=== PATIENT | female | born 1975 | race American Indian/Alaskan Native ===

== ENCOUNTER 2017-01-05 18:02 | Emergency (ER) | payer BC ==
[2017-01-05 18:32] VITALS: RESP 18; TEMP 98.2; O2SAT 100
[2017-01-05 19:01] LABS: HEMATOCRIT 37.8 % (36.0-48.0); MEAN CELL VOLUME 73.7 fL (80.0-105.0); MEAN CORPUSCULAR HEMOGLOBIN 23.4 pg (25.0-35.0); MEAN CORPUSCULAR HGB CONC 31.7 g/dl (31.0-37.0); MEAN PLATELET VOLUME 8.9 fl (7.0-11.0); RED CELL DISTRIBUTION WIDTH 17.3 % (11.5-14.5); WHITE BLOOD COUNT 12.5 10^3/ul (4.5-11.0)
[2017-01-05 19:11] LABS: ALB/GLOB RATIO 0.8 (1.1-1.8); ALKALINE PHOSPHATASE 135 U/L (38-133); ALT/SGPT 22 U/L (7-56); AST/SGOT 78 U/L (15-39); BILIRUBIN,TOTAL 0.8 mg/dL (0.2-1.3); BLOOD UREA NITROGEN 8 mg/dL (7-21); CALCIUM 9.5 mg/dL (8.4-10.5); CARBON DIOXIDE 24 mmol/L (21-33); CHLORIDE 101 mmol/L (98-107); GFR AFRICAN-AMERICAN > 60; GLUCOSE,RANDOM 108 mg/dL (70-110); POTASSIUM 5.1 mmol/L (3.6-5.0); SODIUM 139 mmol/L (132-148); TOTAL PROTEIN 9.5 g/dL (5.8-8.3)
--- NOTE | 2017-01-05 19:37 | ED PDOC ---
Arrival/HPI - General Chief Complaint: High Blood Pressure Time Seen by Provider: 01/05/17 18:25 Historian: Patient - History of Present Illness Narrative History of Present Illness (Text): 01/05/17 19:32 Patient with PMH of HIV and idiopathic thrombocytosis, reports one day history of blurry vision this morning which lasted for 10 minutes and resolved on its own, states that she had another episode this afternoon which lasted for 5 minutes and resolved on its own. Patient states that she has a history of hypertension and the last time she saw her PMD which was several months ago, her blood pressure in the office was elevated, however was not put on any antihypertensive medication. Since then she has not had any follow-up with a primary care physician. Otherwise: (-) chest pain, (-) diaphoresis, (-) dyspnea , (-) dizziness, (-) loss in her vision, (-) dizziness, (-) syncope, (-) nausea , (-) vomiting, (-) calf swelling/pain, (-) other neuro deficits. PMD none Past Medical History - Provider Review Nursing Documentation Reviewed: Yes - Infectious Disease Hx of Infectious Diseases: None - Cardiac Hx Hypertension: Yes - Pulmonary Hx Respiratory Disorders: No - Neurological Hx Neurological Disorder: No - HEENT Hx HEENT Disorder: No - Renal Hx Renal Disorder: No - Endocrine/Metabolic Hx Endocrine Disorders: No - Hematological/Oncological Hx Blood Disorders: Yes Other/Comment: HIV - Integumentary Hx Dermatological Disorder: No - Musculoskeletal/Rheumatological Hx Musculoskeletal Disorders: No - Gastrointestinal Hx Gastrointestinal Disorders: No - Genitourinary/Gynecological Hx Genitourinary Disorders: No - Psychiatric Hx Psychophysiologic Disorder: No Hx Substance Use: No - Surgical History Hx Section: Yes - Anesthesia Hx Anesthesia: No Hx Anesthesia Reactions: No Hx Malignant Hyperthermia: No Family/Social History - Physician Review Nursing Documentation Reviewed: Yes Family/Social History: No Known Family HX Smoking Status: Never Smoked Hx Alcohol Use: No Hx Substance Use: No Allergies/Home Meds Allergies/Adverse Reactions: Allergies No Known Allergies Allergy (Verified 01/05/17 18:31) Review of Systems - Review of Systems Constitutional: Normal. absent: Fatigue, Weight Change, Fevers Eyes: Normal. absent: Photophobia, Eye Pain Respiratory: Normal. absent: SOB, Cough Cardiovascular: Normal. absent: Chest Pain, Palpitations Gastrointestinal: Normal. absent: Abdominal Pain, Stool Changes, Vomiting Skin: Normal. absent: Rash, Skin Lesions Neurological: Normal, Headache (daily headaches in the morning x 1 month, none at this time). absent: Dizziness, Focal Weakness Physical Exam - Physical Exam Narrative Physical Exam (Text): 01/05/17 19:41 GENERAL APPEARANCE: Patient is awake, alert, oriented x 3, in no acute distress. SKIN: Warm, dry; (-) cyanosis. EYES: Visual acuity: R eye: 20/20 L eye: 20/25 (-) conjunctival pallor, (+) PERRLA, (+) EOMI. ENMT: Mucous membranes moist. NECK: (-) tenderness, (-) stiffness, (-) lymphadenopathy, (-) JVD. CHEST AND RESPIRATORY: (-) rash, (-) chest wall tenderness. Lungs: (-) rales , (-) rhonchi, (-) wheezes, (-) rub; breath sounds equal bilaterally. HEART AND CARDIOVASCULAR: (-) irregularity; (-) murmur, (-) gallop, (-) rub. ABDOMEN AND GI: Soft; (-) distention, (-) tenderness, (-) palpable pulsatile mass. EXTREMITIES: (-) deformity; (-) edema, (-) calf tenderness. (+) distal pulses. NEURO AND PSYCH: Mental status as above. Cranial nerves grossly intact; strength symmetric. Vital Signs Temp Pulse Resp BP Pulse Ox 01/05/17 20:11 99 H 154/94 H 01/05/17 19:27 102 H 161/93 H 01/05/17 18:31 98.2 F 103 H 18 185/107 H 100 01/05/17 18:23 98.5 F 92 H 17 185/107 H 97 Medical Decision Making ED Course and Treatment: 01/05/17 19:42 41 yo F presents with 2 episodes of blurry vision today, is noted to have elevated blood pressure, which patient has a history of, but currently is not taking any medications. Plan: -- Labs -- EKG -- CXR -- Norvasc -- Reassess and disposition 01/05/17 21:51 CXR : NAD, as read by VALENTINA EKG: Sinus tach at 102 bpm, (-) acute ST changes, as read by VALENTINA. Labs reviewed and are within normal limits, except her platelets are 1061. Patient informed, states that she is aware of her elevated platelets, states that 2 years ago she had a full and extensive work up for it, including a bone marrow biopsy and all the test yielded negative results. She states that she was even seeing a group teacher, who only recommended that she takes an ASA daily , which she is not complaints with. On reevaluation, patient states that she feels well, denies any headache, dizziness, visual disturbances - including vision loss or blurry vision, chest pain, difficulty breathing. On exam, patient remains awake, alert, oriented 3 in no acute distress. Repeat neuro exam shows no focal findings. All diagnostic results discussed with the patient in great detail. VS P 99 BP 154/94. Based on history, exam and diagnostic results plan will be for outpatient follow -up. Prescription provided. Patient advised that she must follow up with a doctor regarding her elevated BP and with an eye doctor for her blurry vision. Patient states she fully agrees with and understands discharge instructions. States that she agrees with the plan and disposition. Verbalized and repeated discharge instructions and plan. I have given the patient opportunity to ask any additional questions. Follow up with referral physician - PMD & bear keeper in 1-2 days without fail. Advised to take medication as prescribed. Return to the emergency room at any time for any new or worsening symptoms. - Lab Interpretations Lab Results: 01/05/17 18:38 01/05/17 18:38 Lab Results 01/05/17 18:38: WBC 12.5 H, RBC 5.13, Hgb 12.0, Hct 37.8, MCV 73.7 L, MCH 23.4 L , MCHC 31.7, RDW 17.3 H, Plt Count 1061 H*, MPV 8.9, Sodium 139, Potassium 5.1 H , Chloride 101, Carbon Dioxide 24, Anion Gap 19, BUN 8, Creatinine 0.9, Est GFR ( Amer) > 60, Est GFR (Non-Af Amer) > 60, Random Glucose 108, Calcium 9.5 , Total Bilirubin 0.8, AST 78 H, ALT 22, Alkaline Phosphatase 135 H, Total Protein 9.5 H, Albumin 4.3, Globulin 5.1, Albumin/Globulin Ratio 0.8 L - RAD Interpretation Radiology Orders: 03/21/17 19:43 CHEST TWO VIEWS (PA/LAT) [RAD] Stat - Medication Orders Current Medication Orders: Discontinued Medications Amlodipine Besylate (Norvasc) 5 mg PO STAT STA Stop: 01/05/17 19:14 Last Admin: 01/05/17 19:27 Dose: 5 MG MAR Pulse and Blood Pressure Document 01/05/17 19:27 SE (Rec: 01/05/17 19:27 SE [id number]) Pulse Pulse Rate (60-90) 102 Blood Pressure Blood Pressure (100/60-150/90) 161/93 Sodium Polystyrene Sulfonate (Kayexalate Oral Susp) 15 gm PO STAT STA Stop: 01/05/17 20:40 Last Admin: 01/05/17 21:13 Dose: 15 GM - PA / CAFETERIA MONITOR / Resident Statement / has reviewed & agrees with the documentation as recorded. Disposition/Present on Arrival - Present on Arrival Any Indicators Present on Arrival: No History of DVT/PE: No History of Uncontrolled Diabetes: No Urinary Catheter: No History of Decub. Ulcer: No History Surgical Site Infection Following: None - Disposition Have Diagnosis and Disposition been Completed?: Yes Diagnosis: Hypertension, Blurry vision, bilateral Disposition: HOME/ ROUTINE Disposition Time: 21:54 Patient Plan: Discharge Patient Problems: Current Active Problems Problem Status Diagnosed Blurry vision, bilateral Acute Hypertension Acute Condition: STABLE Discharge Instructions (ExitCare): Hypertension (ED), Blurred Vision (ED) Print Language: GERMAN Additional Instructions: Thank you for letting us take care of you today. You were treated for hypertension, blurry vision. The emergency medical care you received today was directed at your acute symptoms. If you were prescribed any medication, please fill it and take as directed. It may take several days for your symptoms to resolve. Return to the Emergency Department if your symptoms worsen, do not improve, or if you have any other problems. Please call one of the physicians/clinics you have been referred to that are listed on the Patient Visit Information form that is included in your discharge packet. Bring any paperwork you were given at discharge with you along with any medications you are taking to your follow up visit. Our treatment cannot replace ongoing medical care by a primary care provider (PCP) outside of the emergency department. Thank you for allowing the [facility] team to be part of your care today. Prescriptions: amLODIPine [Norvasc] 5 mg PO DAILY #30 tab Referrals: Edmundo Lopez DO [Staff Provider] - Follow up with primary Dudley Rm MD [Staff Provider] - Follow up with primary Forms: WORK NOTE
[2017-01-05 20:11] VITALS: PULSE 99
[2017-01-05] MEDS ORDERED: Sod Polystyrene Sulf 15 gm/60 ml Oral Susp PO STA (20:39)
[2017-01-05 22:14] VITALS: BP 153/98
--- NOTE | 2017-01-06 07:20 | RAD ---
HISTORY: HTN COMPARISON: No prior. TECHNIQUE: Chest PA and lateral FINDINGS: LUNGS: Poor inspiration with low lung volumes, mild crowded bronchovascular markings and mild bibasilar atelectasis PLEURA: No significant pleural effusion identified. No pneumothorax apparent. CARDIOVASCULAR: Normal. OSSEOUS STRUCTURES: No significant abnormalities. VISUALIZED UPPER ABDOMEN: Normal. OTHER FINDINGS: None. IMPRESSION: Poor inspiration with low lung volumes, mild crowded bronchovascular markings and mild bibasilar atelectasis
--- NOTE | 2017-01-06 20:10 | CARD ---
APPROVED REPORT EKG Measurement Heart [id number] <Conclusion> Poor data quality, interpretation may be adversely affected Sinus tachycardia Nonspecific T wave abnormality Abnormal ECG
== END 2017-01-05 22:15 | disposition home or self-care (01) ==
LOC: MERGE 18:02 → ED 18:02
DX: H53.8 Other visual disturbances (principal); I10 Essential (primary) hypertension

== ENCOUNTER 2017-01-11 17:22 | Emergency (ER) | payer BC ==
[2017-01-11 18:06] VITALS: BMI 38.9
[2017-01-11 18:07] VITALS: BP 147/82; PULSE 94; RESP 16; TEMP 98.8; O2SAT 98
--- NOTE | 2017-01-11 18:17 | ED PDOC ---
Arrival/HPI - General Historian: Patient - History of Present Illness Time/Duration: Prior to Arrival, 4-6 hours Symptom Onset: Sudden Symptom Course: Intermittent Severity Level: Mild <Juan Davis - Last Filed: 01/11/17 18:10> <Bakari Lee - Last Filed: 01/11/17 18:53> - General Chief Complaint: Eye Problem Time Seen by Provider: 01/11/17 17:28 - History of Present Illness Narrative History of Present Illness (Text): 01/11/17 18:10 This is a 41 year old female with a PMH notable for HIV and idiopathic thrombocytosis presenting to the ED with complaint of double vision x 2 episodes. The patient reports two 5 minute episodes of a cross-eyed sensation resulting in horizontal double vision. The patient has been recently seen in the ED for this same complaint. The patient has been seen by an tour agent within the last few days and reported that the patient had elevated intra-occular pressure. The patient has recently been started on 3 anti-hypertensive medications for blood pressure control. The patient reports compliance with all of her medications. The patient denies fever, chills, headache, chest pain, SOB, abdominal pain, changes in bowel/bladder, and extremity paresthesias. (Juan Davis) Past Medical History - Provider Review Nursing Documentation Reviewed: Yes - Travel History Have you recently traveled outside [place] w/in the past 3 mons?: No - Infectious Disease Hx of Infectious Diseases: None - Tetanus Immunization Tetanus Immunization: Unknown - Reproductive Menopause: No - Cardiac Hx Hypertension: Yes - Pulmonary Hx Respiratory Disorders: No - Neurological Hx Neurological Disorder: No - HEENT Hx HEENT Disorder: No - Renal Hx Renal Disorder: No - Endocrine/Metabolic Hx Endocrine Disorders: No - Hematological/Oncological Hx Blood Disorders: Yes Other/Comment: HIV - Integumentary Hx Dermatological Disorder: No - Musculoskeletal/Rheumatological Hx Musculoskeletal Disorders: No - Gastrointestinal Hx Gastrointestinal Disorders: No - Genitourinary/Gynecological Hx Genitourinary Disorders: No - Psychiatric Hx Psychophysiologic Disorder: No Hx Substance Use: No - Surgical History Hx Section: Yes - Anesthesia Hx Anesthesia: No Hx Anesthesia Reactions: No Hx Malignant Hyperthermia: No <Juan Davis - Last Filed: 01/11/17 18:10> <Bakari Lee - Last Filed: 01/11/17 18:53> - Patient History Narrative Patient History: This is a 41 year old female with a PMH notable for HIV and idiopathic thrombocytosis (Juan Davis) Family/Social History - Physician Review Nursing Documentation Reviewed: Yes Family/Social History: No Known Family HX Smoking Status: Never Smoked Hx Alcohol Use: No Hx Substance Use: No <Juan Davis - Last Filed: 01/11/17 18:10> Allergies/Home Meds <Juan Davis - Last Filed: 01/11/17 18:10> <Bakari Lee - Last Filed: 01/11/17 18:53> Allergies/Adverse Reactions: Allergies No Known Allergies Allergy (Verified 01/05/17 18:31) Review of Systems - Physician Review All systems were reviewed & negative as marked: Yes - Review of Systems Constitutional: absent: Fatigue, Weight Change Eyes: Vision Changes, Other (horizontal double vision). absent: Eye Pain ENT: absent: Hearing Changes, Tinnitus Respiratory: absent: SOB, Cough Cardiovascular: absent: Chest Pain, Palpitations Gastrointestinal: absent: Abdominal Pain, Nausea, Vomiting Genitourinary Female: absent: Dysuria, Frequency Musculoskeletal: absent: Arthralgias Skin: absent: Rash Neurological: absent: Headache, Dizziness Endocrine: absent: Diaphoresis Hemo/Lymphatic: absent: Adenopathy Psychiatric: absent: Anxiety <Juan Davis - Last Filed: 01/11/17 18:10> Physical Exam Vital Signs Reviewed: Yes Temperature: Afebrile Blood Pressure: Normal Pulse: Regular Respiratory Rate: Normal Appearance: Positive for: Well-Appearing, Non-Toxic, Comfortable Pain Distress: None Mental Status: Positive for: Alert and Oriented X 3 - Systems Exam Head: Present: Atraumatic, Normocephalic Pupils: Present: PERRL, Other (good accomidation, good visual acuity, intact peripheral vision ). No: Pinpoint Extroacular Muscles: Present: EOMI. No: Entrapment Conjunctiva: Present: Normal. No: Injected Mouth: Present: Moist Mucous Membranes Neck: Present: Normal Range of Motion. No: JVD, Lymphadenopathy Respiratory/Chest: Present: Clear to Auscultation, Good Air Exchange. No: Respiratory Distress, Accessory Muscle Use, Wheezes Cardiovascular: Present: Regular Rate and Rhythm, Normal S1, S2, Peripheal Pulses Present. No: Murmurs Abdomen: Present: Normal Bowel Sounds. No: Tenderness, Distention, Peritoneal Signs Upper Extremity: Present: Normal Inspection. No: Cyanosis, Edema Lower Extremity: Present: Normal Inspection. No: Edema Neurological: Present: GCS=15, CN II-XII Intact, Speech Normal Skin: Present: Warm, Dry, Normal Color. No: Rashes Psychiatric: Present: Alert, Oriented x 3 <Juan Davis - Last Filed: 01/11/17 18:10> Temperature: Afebrile Blood Pressure: Normal Pulse: Regular Respiratory Rate: Normal Appearance: Positive for: Well-Appearing, Non-Toxic, Comfortable Pain Distress: None Mental Status: Positive for: Alert and Oriented X 3 - Systems Exam Head: Present: Atraumatic, Normocephalic Pupils: Present: PERRL Extroacular Muscles: Present: EOMI Conjunctiva: Present: Normal Mouth: Present: Moist Mucous Membranes Neck: Present: Normal Range of Motion Respiratory/Chest: Present: Clear to Auscultation, Good Air Exchange. No: Respiratory Distress, Accessory Muscle Use Cardiovascular: Present: Regular Rate and Rhythm, Normal S1, S2. No: Murmurs Abdomen: Present: Normal Bowel Sounds. No: Tenderness, Distention, Peritoneal Signs Back: Present: Normal Inspection Upper Extremity: Present: Normal Inspection. No: Cyanosis, Edema Lower Extremity: Present: Normal Inspection. No: Edema Neurological: Present: GCS=15, CN II-XII Intact, Speech Normal, Motor Func Grossly Intact, Normal Sensory Function, Normal Cerebellar Funct, Gait Normal, Memory Normal, Normal 2Pt Descrimination Skin: Present: Warm, Dry, Normal Color. No: Rashes Psychiatric: Present: Alert, Oriented x 3, Normal Insight, Normal Concentration <Bakari Lee - Last Filed: 01/11/17 18:53> Vital Signs Temp Pulse Resp BP Pulse Ox 01/11/17 18:06 98.8 F 94 H 16 147/82 98 Medical Decision Making <Juan Davis - Last Filed: 01/11/17 18:10> <Bakari Lee - Last Filed: 01/11/17 18:53> ED Course and Treatment: 01/11/17 18:23 Impression: This is a 41 year old female with a PMH notable for HIV and idiopathic thrombocytosis presenting to the ED with complaint of double vision x 2 episodes. The patient appears clinically stable. Differential: Hypertension associated visual changes Thyroid Dysregulation Anxiety Plan: Outpatient follow up with PMD Prior Visits: No Inpatient Visits Progress Note: Patient seen and examined at the bedside. No acute distress. No clinical symptoms at this time. Patient is completely asymptomatic. No symptoms elicited on examination. Patient with starkly normal neurological examination. Patient medically stable for discharge. Patient agreeable with discharge plan and follow-up with PMD as soon as possible. (Juan Davis) 01/11/17 18:48 41 yo female who reports two episodes of double vision as documented by resident. She states that her Opthamologist told her that her ocular pressure was a little elevated and she has a follow up appointment in a month. Her primary doctor she has follow up with on Wednesday. The patient does not have any symptoms at this time. She states that she's had these symptoms several times because of her BP and they also told her she needs to be evaluated for thyroid disease. Her neuro exam is normal. She is ambulating with a steady gated. She will make sure to follow up with her appointments and continues to take her BP medications as prescribed. (Bakari Lee) Disposition/Present on Arrival - Present on Arrival Any Indicators Present on Arrival: No History of DVT/PE: No History of Uncontrolled Diabetes: No Urinary Catheter: No History Surgical Site Infection Following: None - Disposition Have Diagnosis and Disposition been Completed?: Yes Disposition Time: 18:15 Patient Plan: Discharge <Juan Davis - Last Filed: 01/11/17 18:10> - Present on Arrival Any Indicators Present on Arrival: No - Disposition Have Diagnosis and Disposition been Completed?: Yes Disposition Time: 18:06 Patient Plan: Discharge <Bakari Lee - Last Filed: 01/11/17 18:53> - Disposition Diagnosis: Diplopia Disposition: HOME/ ROUTINE Patient Problems: Current Active Problems Problem Status Diagnosed Blurry vision Acute Condition: GOOD Discharge Instructions (ExitCare): Blurred Vision (ED) Print Language: SWEDISH Additional Instructions: 1.) Follow up with PMD within 48 hours 2.) Take all medications in accordance with prescriptions 3.) If symptoms return, please return to the ED for evaluation
== END 2017-01-11 18:45 | disposition home or self-care (01) ==
LOC: ED 17:22
DX: H53.2 Diplopia (principal)

== ENCOUNTER 2017-02-11 19:46 | Observation (INO) | payer BC ==
--- NOTE | 2017-02-11 21:02 | ED PDOC ---
Arrival/HPI - General Chief Complaint: Dizziness/Lightheaded Time Seen by Provider: 02/11/17 20:23 - History of Present Illness Narrative History of Present Illness (Text): 41F c/o intermittent vertigo lasting up to 2 hours and occurring daily for the last week. assoc w "head pressure," numbness in the left hand, and gait difficulty during episodes. no sx currently. she was recently admitted to [facility] where she had an MRI that showed 2 areas of restricted diffusion in the cerebellum that they thought were likely small vessel infarcts. she also was found to have high platelet count and was started on hydroxyurea she says for this. she had some episodes of double vision last month but no recent visual changes. no speaking or swallowing difficulty. hx of HIV on meds. Past Medical History - Infectious Disease Hx of Infectious Diseases: None - Tetanus Immunization Tetanus Immunization: Unknown - Cardiac Hx Hypertension: Yes - Pulmonary Hx Respiratory Disorders: No - Neurological Hx Neurological Disorder: No - HEENT Hx HEENT Disorder: No - Renal Hx Renal Disorder: No - Endocrine/Metabolic Hx Endocrine Disorders: No - Hematological/Oncological Hx Blood Disorders: Yes Other/Comment: HIV - Integumentary Hx Dermatological Disorder: No - Musculoskeletal/Rheumatological Hx Musculoskeletal Disorders: No - Gastrointestinal Hx Gastrointestinal Disorders: No - Genitourinary/Gynecological Hx Genitourinary Disorders: No - Psychiatric Hx Psychophysiologic Disorder: No Hx Substance Use: No - Surgical History Hx Section: Yes - Anesthesia Hx Anesthesia: No Hx Anesthesia Reactions: No Hx Malignant Hyperthermia: No Family/Social History Family/Social History: Other (nc) Smoking Status: Never Smoked Hx Alcohol Use: No Hx Substance Use: No Allergies/Home Meds Allergies/Adverse Reactions: Allergies No Known Allergies Allergy (Verified 01/05/17 18:31) Home Medications: Home Meds Medication Instructions Recorded Confirmed Alprazolam 0.5 mg PO BID PRN 02/12/17 02/12/17 Aspirin EC 325 mg PO DAILY 02/12/17 02/12/17 Hydrochlorothiazide 25 mg PO DAILY 02/12/17 02/12/17 Hydroxyurea 500 mg PO DAILY 02/12/17 02/12/17 Tivicay 50 mg PO DAILY 02/12/17 02/12/17 Truvada 200 MG-300 MG 200 - 300 mg PO DAILY 02/12/17 02/12/17 Valsartan 160 mg PO DAILY 02/12/17 02/12/17 amLODIPine [Norvasc] 10 mg PO DAILY 02/12/17 02/12/17 Review of Systems - Physician Review All systems were reviewed & negative as marked: Yes - Review of Systems Constitutional: absent: Fevers Eyes: absent: Photophobia ENT: absent: Hearing Changes Respiratory: absent: SOB, Cough Cardiovascular: Palpitations Gastrointestinal: absent: Abdominal Pain, Nausea, Vomiting Genitourinary Female: absent: Dysuria Neurological: Headache, Dizziness, Gait Changes. absent: Focal Weakness, Speech Changes Physical Exam Vital Signs Reviewed: Yes Vital Signs Temp Pulse Resp BP Pulse Ox 02/12/17 01:32 88 18 136/84 99 02/12/17 01:25 98.7 F 83 20 128/64 02/11/17 23:47 98.8 F 82 16 100 02/11/17 21:47 76 18 99 02/11/17 19:54 99.5 F 87 18 132/88 97 Appearance: Positive for: Well-Appearing, Non-Toxic, Comfortable Pain Distress: None Mental Status: Positive for: Alert and Oriented X 3 - Systems Exam Head: Present: Atraumatic Pupils: Present: PERRL Extroacular Muscles: Present: EOMI Mouth: Present: Moist Mucous Membranes Neck: Present: Normal Range of Motion Respiratory/Chest: Present: Clear to Auscultation Cardiovascular: Present: Regular Rate and Rhythm. No: Murmurs Abdomen: No: Tenderness, Distention Upper Extremity: Present: NORMAL PULSES Neurological: Present: GCS=15, CN II-XII Intact, Speech Normal, Motor Func Grossly Intact, Normal Sensory Function, Normal Cerebellar Funct, Gait Normal Skin: Present: Warm, Dry Psychiatric: Present: Alert, Oriented x 3 Medical Decision Making ED Course and Treatment: 02/11/17 22:26 EKG interpreted by me: NSR@ 90 bpm. Short [place]. nonspecific t wave changes. 02/12/17 00:12 EXAM: CT Head Without Intravenous Contrast CLINICAL HISTORY: FINDINGS: Brain: Unremarkable. No hemorrhage. No significant white matter disease. No edema. Ventricles: Unremarkable. No ventriculomegaly. Bones/joints: Unremarkable. No acute fracture. Soft tissues: Unremarkable. Sinuses: Unremarkable as visualized. No acute sinusitis. Mastoid air cells: Unremarkable as visualized. No mastoid effusion. IMPRESSION: No evidence of acute intracranial hemorrhage. No midline shift or hydrocephalus.If symptoms persist, correlation with MRI is advised. - Lab Interpretations Lab Results: 02/11/17 21:15 02/11/17 21:15 Lab Results 02/11/17 21:15: Troponin I < 0.01 02/11/17 21:15: TSH 3rd Generation 1.82 02/11/17 21:15: PT 11.4, INR 1.06, APTT 31.3 H 02/11/17 21:15: WBC 10.8, RBC 4.57, Hgb 10.9 L, Hct 33.4 L, MCV 73.1 L, MCH 23.9 L, MCHC 32.6, RDW 17.1 H, Plt Count 1234 H*, MPV 8.4, Gran % 61.1, Lymph % (Auto) 29.6, Perkins % (Auto) 7.6 H, Eos % (Auto) 1.2 L, Baso % (Auto) 0.5, Gran # 6.63 H, Lymph # 3.2, Perkins # 0.8 H, Eos # 0.1, Baso # 0.05 02/11/17 21:15: Sodium 137, Potassium 3.2 L, Chloride 98, Carbon Dioxide 27, Anion Gap 15, BUN 11, Creatinine 1.0, Est GFR ( Amer) > 60, Est GFR (Non- Af Amer) > 60, Random Glucose 112 H, Calcium 9.7, Total Bilirubin 0.5, AST 85 H , ALT 43, Alkaline Phosphatase 124, Total Protein 8.8 H, Albumin 4.4, Globulin 4.4, Albumin/Globulin Ratio 1.0 L I have reviewed the lab results: Yes - RAD Interpretation Radiology Orders: 02/11/17 20:47 CHEST PORTABLE [RAD] Stat 02/11/17 20:48 HEAD W/O CONTRAST [CT] Stat [employer] Printing: Radiologist - EKG Interpretation Interpreted by ED Physician: Yes Type: 12 lead EKG - Medication Orders Current Medication Orders: Discontinued Medications Amlodipine Besylate (Norvasc) 10 mg PO DAILY [facility] Last Admin: 02/12/17 09:12 Dose: 10 mg Aspirin (Aspirin Chewable) 324 mg PO STAT STA Stop: 02/12/17 00:18 Last Admin: 02/12/17 01:57 Dose: 324 mg Aspirin (Ecotrin) 325 mg PO DAILY [facility] Last Admin: 02/12/17 09:12 Dose: 325 mg Emtricitabine/Tenofovir (Truvada 200 Mg-300 Mg) 1 tab PO DAILY [facility] Last Admin: 02/12/17 09:12 Dose: 1 tab Enoxaparin Sodium (Lovenox) 70 mg SC Q24H MALLIKA PRN Reason: Protocol Enoxaparin Sodium (Lovenox) 40 mg SC DAILY MALLIKA PRN Reason: Protocol Last Admin: 02/12/17 09:14 Dose: Famotidine (Pepcid) 20 mg PO BID [facility] Home Med (Home Med) 1 unit PO DAILY [facility] Last Admin: 02/12/17 09:52 Dose: 1 unit Home Med (*Refrigerator Open) Confirm Administered Dose 1 unit XX .STK-MED ONE Stop: 02/12/17 09:27 Hydrochlorothiazide (Hydrodiuril) 25 mg PO DAILY [facility] Last Admin: 02/12/17 09:12 Dose: 25 mg Hydroxyurea (Hydrea) 500 mg PO Q12H [facility] Last Admin: 02/12/17 09:30 Dose: 500 mg Sodium Chloride (Sodium Chloride 0.9%) 1,000 mls @ 100 mls/hr IV .Q10H [facility] Last Admin: 02/12/17 14:36 Dose: 100 mls/hr Losartan Potassium (Cozaar) 100 mg PO DAILY [facility] Last Admin: 02/12/17 09:12 Dose: 100 mg Meclizine HCl (Antivert) 12.5 mg PO STAT STA Stop: 02/12/17 11:05 Last Admin: 02/12/17 11:32 Dose: 12.5 mg Pantoprazole Sodium (Protonix Ec Tab) 40 mg PO ACB [facility] Last Admin: 02/12/17 07:27 Dose: 40 mg Potassium Chloride (K-Dur 20 Meq Er Tab) 40 meq PO STAT STA Stop: 02/12/17 01:22 Last Admin: 02/12/17 01:57 Dose: 40 meq Potassium Chloride (K-Dur 20 Meq Er Tab) 40 meq PO STAT STA Stop: 02/12/17 09:46 Last Admin: 02/12/17 14:36 Dose: 40 meq NIHSS Scale ([place]) Time Performed: 20:30 - How Severe is the Stoke Baseline Level of Consciousness: 0=Alert LOC to Questions: 0=Both comments correct LOC to commands: 0=Obeys both correctly Best Gaze: 0=Normal Visual: 0=No visual loss Facial: 0=Normal Motor Arm - Left: 0=No drift Motor Arm - Right: 0=No drift Motor Leg - Left: 0=No drift Motor Leg - Right: 0=No drift Limb Ataxia: 0=Absent Sensory: 0=Normal Best Language: 0=No aphasia Dysarthia: 0=Normal articulation Extinction & Inattention (Neglect): 0=Normal, no object Score: 0 Risk Level: No Stroke Risk Disposition/Present on Arrival - Present on Arrival Any Indicators Present on Arrival: No History of DVT/PE: No History of Uncontrolled Diabetes: No Urinary Catheter: No History of Decub. Ulcer: No History Surgical Site Infection Following: None - Disposition Have Diagnosis and Disposition been Completed?: Yes Diagnosis: Vertigo Disposition: HOSPITALIZED Disposition Time: 00:34 Condition: STABLE
[2017-02-11 21:23] LABS: ADD MANUAL DIFF? NO
[2017-02-11 21:31] LABS: BASO # 0.05 K/mm3 (0.0-2.0); BASO % 0.5 % (0.0-3.0); EOS # 0.1 (0.0-0.7); EOS % 1.2 % (1.5-5.0); GRAN # 6.63 (1.4-6.5); GRAN % 61.1 % (50.0-68.0); HEMATOCRIT 33.4 % (36.0-48.0); LYMPH # 3.2 (1.2-3.4); LYMPH % 29.6 % (22.0-35.0); MEAN CELL VOLUME 73.1 fL (80.0-105.0); MEAN CORPUSCULAR HEMOGLOBIN 23.9 pg (25.0-35.0); MEAN CORPUSCULAR HGB CONC 32.6 g/dl (31.0-37.0); MEAN PLATELET VOLUME 8.4 fl (7.0-11.0); MONO # 0.8 (0.1-0.6); MONO % 7.6 % (1.0-6.0); RED CELL DISTRIBUTION WIDTH 17.1 % (11.5-14.5); WHITE BLOOD COUNT 10.8 10^3/ul (4.5-11.0)
[2017-02-11 21:42] LABS: INR 1.06 (0.93-1.08); PARTIAL THROMBOPLASTIN TIME 31.3 Seconds (23.7-30.8); PLATELET COUNT 1234 10^3/uL (120.0-450.0)
[2017-02-11 22:55] LABS: ALKALINE PHOSPHATASE 124 U/L (38-133); ALT/SGPT 43 U/L (7-56); AST/SGOT 85 U/L (15-39); BILIRUBIN,TOTAL 0.5 mg/dL (0.2-1.3); BLOOD UREA NITROGEN 11 mg/dL (7-21); CALCIUM 9.7 mg/dL (8.4-10.5); CARBON DIOXIDE 27 mmol/L (21-33); CHLORIDE 98 mmol/L (98-107); GFR AFRICAN-AMERICAN > 60; GLUCOSE,RANDOM 112 mg/dL (70-110); POTASSIUM 3.2 mmol/L (3.6-5.0); SODIUM 137 mmol/L (132-148); TOTAL PROTEIN 8.8 g/dL (5.8-8.3)
[2017-02-12] MEDS ORDERED: Sodium Chloride 0.9% 1,000 ML IV SCH (00:30)
[2017-02-12] MEDS ORDERED: Potassium Chloride 20 mEq ER Tab PO STA ×2 (01:21→09:45)
[2017-02-12 01:33] VITALS: O2SAT 99
--- NOTE | 2017-02-12 01:39 | CP.PCM.HP ---
<Irasema Meier - Last Filed: 02/12/17 03:12> History of Present Illness - History of Present Illness History of Present Illness: Internal medicine H & P for Dr. Filipe Meier, PGY-1 Pt S & E at bedside. 41F w/PMH sig for HVI, HTN, essential thrombocytosis admitted to hospital for dizziness x 1 mo. Pt reports that she has reported to ED x 2 at the end of December with recs to FU w/PMD and see an ophthomologist outpatient due to dizziness, head pressure, chest pressure, Left hand numbness, and blurry vision. At the end of December pt went to [facility] for same- was admitted with findings significant for L cerebellar infarct and essential thrombocytosis. Pt reports that after her hospitalization she continued to have all symptoms excluding blurry vision, but felt she was improved. Dizziness described as sensation that pt is spinning. Episodes last 4-8 hrs, do not occur daily, but occur frequently throughout the week. Pt reports substernal chest pressure, Left hand numbness and head pressure started 3-4 days [employer]. Today pt started to experience dizziness, onset at approx 2pm- constant. No inciting, alleviating or aggravating factors identified. Admits to palpitations,, wt loss- has been avoiding foods due to fears that they contribute to her symptoms. Denies N/V/F/C, SOB, changes in bowel or bladder habits, changes in vision, motor or sensory deficits, difficulties swallowing. PMH; HIV, HTN, essential thrombocytosis, L cerebellar infarct PSH: x 1, D & C (10/2016) All: Denies SH: Denies ETOH use, remote limited hx of tobacco use- 1 pk per week x 3-4 mos 13-14 yrs ago, denies illicit drug use; works on [employer] Information PMD: [facility] Outpatient ID: Kristopher Outpatient neuro: Trace Key Outpatient heme: Jayme Varghese Pharmacy: [facility] meds: Hydroxyurea, Truvada, Tivicay, valsartan, HCTZ, Amlodipine, Xanax PRN , ASA 325mg QD Present on Admission - Present on Admission Any Indicators Present on Admission: No History of DVT/PE: No History of Uncontrolled Diabetes: No Urinary Catheter: No Decubitus Ulcer Present: No Review of Systems - Review of Systems All systems: reviewed and no additional remarkable complaints except - Constitutional Constitutional: Headache ("Pressure"), Weight Loss (avoiding eating). absent: Chills, Fatigue, Fever, Lethargy, Weakness - EENT Eyes: absent: Blurred Vision, Change in Vision, Loss of Peripheral Vision, Spots in Vision Ears: Dizziness. absent: Tinnitus Nose/Mouth/Throat: absent: Nasal Congestion, Sore Throat - Cardiovascular Cardiovascular: Chest Pain, Palpitations. absent: Dyspnea, Leg Edema - Respiratory Respiratory: absent: Cough - Gastrointestinal Gastrointestinal: absent: Abdominal Pain, Constipation, Diarrhea, Hematemesis, Hematochezia, Nausea, Vomiting - Genitourinary Genitourinary: absent: Change in Urinary Stream, Dysuria, Hematuria - Musculoskeletal Musculoskeletal: Numbness (of Left hand), Tingling (of left hand). absent: Back Pain, Muscle Weakness, Neck Pain - Integumentary Integumentary: absent: Rash - Neurological Neurological: Dizziness, Numbness (of left hand), Tingling (of left hand). absent: Abnormal Speech, Focal Weakness, Loss of Vision, Sensory Deficit, Weakness - Psychiatric Psychiatric: Anxiety Past Patient History - Infectious Disease Hx of Infectious Diseases: None - Tetanus Immunizations Tetanus Immunization: Unknown - Past Social History Smoking Status: Never Smoked - CARDIAC Hx Hypertension: Yes - PULMONARY Hx Respiratory Disorders: No - NEUROLOGICAL Hx Neurological Disorder: No - HEENT Hx HEENT Problems: No - RENAL Hx Chronic Kidney Disease: No - ENDOCRINE/METABOLIC Hx Endocrine Disorders: No - HEMATOLOGICAL/ONCOLOGICAL Hx Blood Disorders: Yes Other/Comment: HIV - INTEGUMENTARY Hx Dermatological Problems: No - MUSCULOSKELETAL/RHEUMATOLOGICAL Hx Musculoskeletal Disorders: No - GASTROINTESTINAL Hx Gastrointestinal Disorders: No - GENITOURINARY/GYNECOLOGICAL Hx Genitourinary Disorders: No - PSYCHIATRIC Hx Psychophysiologic Disorder: No Hx Substance Use: No - SURGICAL HISTORY Hx Section: Yes - ANESTHESIA Hx Anesthesia: No Hx Anesthesia Reactions: No Hx Malignant Hyperthermia: No Meds Allergies/Adverse Reactions: Allergies Allergy/AdvReac Type Severity Reaction Status Date / Time No Known Allergies Allergy Verified 01/05/17 18:31 Physical Exam - Constitutional Appears: Well, Non-toxic, No Acute Distress - Head Exam Head Exam: ATRAUMATIC, NORMAL INSPECTION, NORMOCEPHALIC - Eye Exam Eye Exam: EOMI, Normal appearance, PERRL Pupil Exam: NORMAL ACCOMODATION, PERRL - ENT Exam ENT Exam: Mucous Membranes Moist, Normal Exam - Neck Exam Neck exam: Positive for: Full Rom, Normal Inspection. Negative for: Tenderness - Respiratory Exam Respiratory Exam: Clear to Auscultation Bilateral, NORMAL BREATHING PATTERN. absent: Accessory Muscle Use, Chest Wall Tenderness - Cardiovascular Exam Cardiovascular Exam: REGULAR RHYTHM, +S1, +S2 - GI/Abdominal Exam GI & Abdominal Exam: Normal Bowel Sounds, Soft. absent: Distended, Firm, Guarding, Tenderness - Extremities Exam Extremities exam: Positive for: full ROM, normal capillary refill, normal inspection. Negative for: pedal edema, tenderness - Back Exam Back exam: FULL ROM, NORMAL INSPECTION. absent: paraspinal tenderness, tenderness, vertebral tenderness - Neurological Exam Neurological exam: Alert, CN II-XII Intact, Oriented x3 - Psychiatric Exam Psychiatric exam: Normal Affect, Normal Mood - Skin Skin Exam: Dry, Intact, Normal Color, Warm Results - Vital Signs Recent Vital Signs: Last Vital Signs Temp 98.8 F 02/11/17 23:47 Pulse 88 02/12/17 01:32 Resp 18 02/12/17 01:32 BP 136/84 02/12/17 01:32 Pulse Ox 99 02/12/17 01:32 - Labs Result Diagrams: 02/11/17 21:15 02/11/17 21:15 Assessment & Plan - Assessment and Plan (Free Text) Assessment: 41 F w/PMH sig for HIV, HTN, essential thrombocytosis admitted for dizziness, Left hand numbness/tingling, chest pain, head pressure. Pt will be monitored on tele while work up is in progress. Pt stable. Plan: Dizziness/head pressure Hx L cerebellar infarct No leukocytosis Afebrile Neuro checks Q4H Orthostatic VS Q8H CT brain w/o cont No evidence of acute intracranial hemorrhage. No midline shift or hydrocephalus.If symptoms persist, correlation with MRI is advised. Pt recently had MRA per outpatient neurologist- has an appointment 02/23 for results Chest pressure/pain HR 87 EKG NSR@ 90bpm, Short OR, non specific T wave changes Troponin neg x 1 FU serial JUAN Cont home med: ASA 325 HTN BP 132/88 Cont home meds: Valsartan, HCTZ, amlodipine, ASA 325mg QD Monitor Hypokalemia K 3.2 Replaced 40mEq KCl Monitor Essential thrombocytosis Plts 1234 FU von willibrands testing NS@100 Started Hydroxyurea 500mg BID Heme c/s-Sharon HIV Cont home meds: tivicay, truvada GI/DVT ppx Protonix SCDs Ambulate Lovenox Dispo: Admit to tele VS@4H Fall precautions DW attending - Date & Time Date: 02/12/17 Time: 01:38 Decision To Admit - Pt Status Changed To: Hospital Disposition Of: Observation - . Bed Request Type: Telemetry Admitting Physician: David Camacho <David Camacho - Last Filed: 02/12/17 06:51> Results - Vital Signs Recent Vital Signs: Last Vital Signs Temp 98.7 F 02/12/17 01:25 Pulse 77 02/12/17 06:02 Resp 18 02/12/17 01:32 BP 136/84 02/12/17 01:32 Pulse Ox 99 02/12/17 01:32 - Labs Result Diagrams: 02/11/17 21:15 02/11/17 21:15 Labs: Laboratory Results - last 24 hr 02/12/17 02:00 Urine Color Yellow Urine Appearance Clear Urine pH 6.0 Ur Specific [place] 1.020 Urine Protein Negative Urine Glucose (UA) Negative Urine Ketones Negative Urine Blood Negative Urine Nitrate Negative Urine Bilirubin Negative Urine Urobilinogen 1.0 H Ur Leukocyte Esterase Trace H Urine RBC TEST NOT PERFORMED Urine WBC 0 - 2 Ur Epithelial Cells 4 - 5 Amorphous Sediment Few Urine Bacteria Trace Urine HCG, Qual Negative Attending/Attestation - Attestation I have personally seen and examined this patient.: Yes I have fully participated in the care of the patient.: Yes I have reviewed all pertinent clinical information: Yes
[2017-02-12] MEDS ORDERED: Enoxaparin 80 mg Syringe SC SCH (02:00)
[2017-02-12 02:47] LABS: URINE BILIRUBIN NEGATIVE (NEGATIVE); URINE BLOOD NEGATIVE (NEGATIVE); URINE GLUCOSE (UA) NEGATIVE (NEGATIVE); URINE KETONE NEGATIVE (NEGATIVE); URINE LEUKOCYTE ESTERASE TRACE Leu/uL (NEGATIVE); URINE PROTEIN NEGATIVE mg/dL (<30 mg/dL)
[2017-02-12 02:58] LABS: URINE APPEARANCE CLEAR (CLEAR); URINE COLOR YELLOW (YELLOW)
[2017-02-12 03:13] LABS: URINE AMORPHOUS SEDIMENT FEW; URINE BACTERIA TRACE (NEG); URINE WBC 0 - 2 /hpf (0-6)
[2017-02-12 05:58] VITALS: BMI 38.0
[2017-02-12] MEDS: Enoxaparin 40 mg Syringe SC SCH ×2 (07:00→09:14)
--- NOTE | 2017-02-12 07:16 | CT ---
PROCEDURE: CT HEAD WITHOUT CONTRAST. HISTORY: vertigo COMPARISON: None available. TECHNIQUE: Axial computed tomography images were obtained through the head/brain without intravenous contrast. Radiation dose: Total exam DLP = 774.23 mGy-cm. This CT exam was performed using one or more of the following dose reduction techniques: Automated exposure control, adjustment of the mA and/or kV according to patient size, and/or use of iterative reconstruction technique. FINDINGS: HEMORRHAGE: No intracranial hemorrhage. BRAIN: No mass effect or edema. No atrophy or chronic microvascular ischemic changes.Please note that MRI with diffusion imaging is more sensitive in the detection of acute ischemic event. VENTRICLES: Unremarkable. No hydrocephalus. CALVARIUM: Unremarkable. PARANASAL SINUSES: Unremarkable as visualized. No significant inflammatory changes. MASTOID AIR CELLS: Unremarkable as visualized. No inflammatory changes. OTHER FINDINGS: None. IMPRESSION: No acute intracranial pathology identified. Preliminary impression was provided by virtual radiologic.
--- NOTE | 2017-02-12 07:20 | RAD ---
HISTORY: palpitations COMPARISON: Chest x-ray performed 01/05/17 TECHNIQUE: Chest, one view. FINDINGS: Examination limited by habitus. LUNGS: No focal consolidation. Please note that chest x-ray has limited sensitivity for the detection of pulmonary masses. PLEURA: No significant pleural effusion identified. No definite pneumothorax . CARDIOVASCULAR: The cardiomediastinal silhouette appears within normal limits of size. OSSEOUS STRUCTURES: No acute osseous abnormality identified. VISUALIZED UPPER ABDOMEN: Unremarkable. OTHER FINDINGS: None. IMPRESSION: No focal consolidation, significant pleural effusion, or definite pneumothorax identified.
[2017-02-12] MEDS ORDERED: Pantoprazole 40 mg EC Tab PO SCH (07:30)
[2017-02-12 07:32] LABS: BASO # 0.05 K/mm3 (0.0-2.0); BASO % 0.7 % (0.0-3.0); EOS # 0.1 (0.0-0.7); EOS % 1.6 % (1.5-5.0); GRAN # 4.48 (1.4-6.5); GRAN % 60.3 % (50.0-68.0); HEMATOCRIT 33.5 % (36.0-48.0); LYMPH # 2.3 (1.2-3.4); LYMPH % 30.5 % (22.0-35.0); MEAN CELL VOLUME 73.3 fL (80.0-105.0); MEAN CORPUSCULAR HEMOGLOBIN 23.4 pg (25.0-35.0); MEAN CORPUSCULAR HGB CONC 31.9 g/dl (31.0-37.0); MEAN PLATELET VOLUME 8.5 fl (7.0-11.0); MONO # 0.5 (0.1-0.6); MONO % 6.9 % (1.0-6.0); RED CELL DISTRIBUTION WIDTH 17.3 % (11.5-14.5); WHITE BLOOD COUNT 7.4 10^3/ul (4.5-11.0)
[2017-02-12 07:49] LABS: ALKALINE PHOSPHATASE 127 U/L (38-133); ALT/SGPT 44 U/L (7-56); AST/SGOT 88 U/L (15-39); BILIRUBIN,TOTAL 0.5 mg/dL (0.2-1.3); BLOOD UREA NITROGEN 8 mg/dL (7-21); CALCIUM 9.4 mg/dL (8.4-10.5); CARBON DIOXIDE 28 mmol/L (21-33); CHLORIDE 102 mmol/L (98-107); GFR AFRICAN-AMERICAN > 60; GLUCOSE,RANDOM 94 mg/dL (70-110); MAGNESIUM 2.4 mg/dL (1.7-2.2); PHOSPHOROUS 4.1 mg/dL (2.5-4.5); POTASSIUM 3.5 mmol/L (3.6-5.0); SODIUM 140 mmol/L (132-148); TOTAL PROTEIN 8.3 g/dL (5.8-8.3)
[2017-02-12 07:55] LABS: PLATELET COUNT 1198 10^3/uL (120.0-450.0)
[2017-02-12 07:56] LABS: ADD MANUAL DIFF? NO
[2017-02-12 07:58] LABS: TROPONIN I < 0.01 ng/mL
--- NOTE | 2017-02-12 09:09 | CARD ---
APPROVED REPORT EKG Measurement Heart [id number] IL [id number] [id number] <Conclusion> Sinus rhythm with short [place] Nonspecific ST and T wave abnormality Abnormal ECG
[2017-02-12] MEDS ORDERED: Aspirin 325 mg EC Tablets PO SCH (10:00)
[2017-02-12] MEDS ORDERED: VALSARTAN 160 MG PO SCH (10:00)
[2017-02-12] MEDS ORDERED: Emtricitabine-Tenofovir 200 mg-300 mg Tab PO SCH (10:00)
[2017-02-12] MEDS ORDERED: TIVICAY 50 MG PO SCH (10:00)
--- NOTE | 2017-02-12 11:00 | MRI ---
PROCEDURE: MRI BRAIN WITHOUT CONTRAST HISTORY: VERTIGO COMPARISON: None. TECHNIQUE: Multiplanar, multisequence MR images of the brain were obtained without intravenous contrast enhancement. FINDINGS: HEMORRHAGE: None DWI: No evidence of an acute or early subacute infarction. BRAIN PARENCHYMA: No mass effect or edema. No atrophy or chronic microvascular ischemic changes. VENTRICLES: Unremarkable. No hydrocephalus. CRANIUM: Unremarkable. ORBITS: Grossly unremarkable. PARANASAL SINUSES/MASTOIDS: Clear VASCULAR SYSTEM: Skull base flow voids intact. OTHER FINDINGS: None. IMPRESSION: Unremarkable non contrast enhanced MRI of the brain.
[2017-02-12 11:44] VITALS: BP 121/60; RESP 21; TEMP 98
[2017-02-12 13:53] LABS: TROPONIN I < 0.01 ng/mL
--- NOTE | 2017-02-12 15:14 | CP.PCM.DIS ---
<Darion Gallo - Last Filed: 02/12/17 16:33> Provider - Provider Date of Admission: 02/12/17 00:34 Attending physician: Felipe Morillo MD Time Spent in preparation of Discharge (in minutes): 35 Hospital Course - Lab Results Lab Results: Most Recent Lab Values WBC 7.4 10^3/ul (4.5-11.0) D 02/12/17 06:30 RBC 4.57 10^6/uL (3.5-6.1) 02/12/17 06:30 Hgb 10.7 gm/dL (12.0-16.0) L 02/12/17 06:30 Hct 33.5 % (36.0-48.0) L 02/12/17 06:30 MCV 73.3 fL (80.0-105.0) L 02/12/17 06:30 MCH 23.4 pg (25.0-35.0) L 02/12/17 06:30 MCHC 31.9 g/dl (31.0-37.0) 02/12/17 06:30 RDW 17.3 % (11.5-14.5) H 02/12/17 06:30 Plt Count 1198 10^3/uL (120.0-450.0) H* 02/12/17 06:30 MPV 8.5 fl (7.0-11.0) 02/12/17 06:30 Gran % 60.3 % (50.0-68.0) 02/12/17 06:30 Lymph % (Auto) 30.5 % (22.0-35.0) 02/12/17 06:30 Cedar % (Auto) 6.9 % (1.0-6.0) H 02/12/17 06:30 Eos % (Auto) 1.6 % (1.5-5.0) 02/12/17 06:30 Baso % (Auto) 0.7 % (0.0-3.0) 02/12/17 06:30 Gran # 4.48 (1.4-6.5) 02/12/17 06:30 Lymph # 2.3 (1.2-3.4) 02/12/17 06:30 Cedar # 0.5 (0.1-0.6) 02/12/17 06:30 Eos # 0.1 (0.0-0.7) 02/12/17 06:30 Baso # 0.05 K/mm3 (0.0-2.0) 02/12/17 06:30 PT 11.4 Seconds (9.9-11.8) 02/11/17 21:15 INR 1.06 (0.93-1.08) 02/11/17 21:15 APTT 31.3 Seconds (23.7-30.8) H 02/11/17 21:15 Sodium 140 mmol/L (132-148) 02/12/17 06:30 Potassium 3.5 mmol/L (3.6-5.0) L 02/12/17 06:30 Chloride 102 mmol/L (98-107) 02/12/17 06:30 Carbon Dioxide 28 mmol/L (21-33) 02/12/17 06:30 Anion Gap 14 (10-20) 02/12/17 06:30 BUN 8 mg/dL (7-21) 02/12/17 06:30 Creatinine 0.9 mg/dL (0.5-1.4) 02/12/17 06:30 Est GFR ( Amer) > 60 02/12/17 06:30 Est GFR (Non-Af Amer) > 60 02/12/17 06:30 Random Glucose 94 mg/dL (70-110) 02/12/17 06:30 Calcium 9.4 mg/dL (8.4-10.5) 02/12/17 06:30 Phosphorus 4.1 mg/dL (2.5-4.5) 02/12/17 06:30 Magnesium 2.4 mg/dL (1.7-2.2) H 02/12/17 06:30 Total Bilirubin 0.5 mg/dL (0.2-1.3) 02/12/17 06:30 AST 88 U/L (15-39) H 02/12/17 06:30 ALT 44 U/L (7-56) 02/12/17 06:30 Alkaline Phosphatase 127 U/L (38-133) 02/12/17 06:30 Total Creatine Kinase 189 U/L (35-230) 02/12/17 13:03 Troponin I < 0.01 ng/mL 02/12/17 13:03 Total Protein 8.3 g/dL (5.8-8.3) 02/12/17 06:30 Albumin 4.2 g/dL (3.0-4.8) 02/12/17 06:30 Globulin 4.1 gm/dL 02/12/17 06:30 Albumin/Globulin Ratio 1.0 (1.1-1.8) L 02/12/17 06:30 TSH 3rd Generation 1.82 mIU/mL (0.46-4.68) 02/11/17 21:15 Urine Color Yellow (YELLOW) 02/12/17 02:00 Urine Appearance Clear (CLEAR) 02/12/17 02:00 Urine pH 6.0 (4.7-8.0) 02/12/17 02:00 Ur Specific Coyle 1.020 (1.005-1.035) 02/12/17 02:00 Urine Protein Negative mg/dL (<30 mg/dL) 02/12/17 02:00 Urine Glucose (UA) Negative mg/dL (NEGATIVE) 02/12/17 02:00 Urine Ketones Negative mg/dL (NEGATIVE) 02/12/17 02:00 Urine Blood Negative (NEGATIVE) 02/12/17 02:00 Urine Nitrate Negative (NEGATIVE) 02/12/17 02:00 Urine Bilirubin Negative (NEGATIVE) 02/12/17 02:00 Urine Urobilinogen 1.0 E.U./dL (<1 E.U./dL) H 02/12/17 02:00 Ur Leukocyte Esterase Trace Yves/uL (NEGATIVE) H 02/12/17 02:00 Urine RBC TEST NOT PERFORMED 02/12/17 02:00 Urine WBC 0 - 2 /hpf (0-6) 02/12/17 02:00 Ur Epithelial Cells 4 - 5 /hpf (0-5) 02/12/17 02:00 Amorphous Sediment Few 02/12/17 02:00 Urine Bacteria Trace (NEG) 02/12/17 02:00 Urine HCG, Qual Negative (NEGATIVE) 02/12/17 02:00 - Hospital Course Hospital Course: H&P :41F w/PMH sig for HVI, HTN, essential thrombocytosis admitted to hospital for dizziness x 1 mo. Pt reports that she has reported to ED x 2 at the end of December with recs to FU w/PMD and see an ophthomologist outpatient due to dizziness, head pressure, chest pressure, Left hand numbness, and blurry vision. At the end of December pt went to [facility] [place] for same- was admitted with findings significant for L cerebellar infarct and essential thrombocytosis. Pt reports that after her hospitalization she continued to have all symptoms excluding blurry vision, but felt she was improved. Dizziness described as sensation that pt is spinning. Episodes last 4-8 hrs, do not occur daily, but occur frequently throughout the week. Pt reports substernal chest pressure, Left hand numbness and head pressure started 3-[address] [employer]PRE[employer]. Today pt started to experience dizziness, onset at approx 2pm- constant. No inciting, alleviating or aggravating factors identified. Admits to palpitations,, wt loss- has been avoiding foods due to fears that they contribute to her symptoms. Denies N/V/F/C, SOB, changes in bowel or bladder habits, changes in vision, motor or sensory deficits, difficulties swallowing. Hospital course: Patient is a 41 y/o F who presented with dizziness for 1 month. Her records from [facility] [place] were reviewed which showed a left cerebellar infarct and essential thrombocytosis. She reported having a maintenance mechanic at home who started her on hydroxyurea. Her cardiac enzymes were negative. She was found to be hypokalemic which was replenished. She has essential thrombocytosis and her hydroxyurea was continued. She was continued on her HIV medications. A head CT was performed showing no acute pathology. A non-contrast MRI was performed which was unremarkable. Patient had no neurologic deficits and was able to ambulate with physical therapy. She was counselled on proper diet and exercise regimen as recent lab work indicated she has non-insulin dependent diabetes. Her dizziness improved with Meclazine. She was determined medically stable for discharge. She was advised to : follow up with your primary care physician, infectious disease doctor, and neurologist within a week; make sure to follow up with neurologist about your MRA; resume home medications and take as prescribed; keep a diabetic diet and have your A1C rechecked by primary care physician; get daily exercise for at least 30 minutes 3-4 days a week; refrain from alcohol, tobacco, or drug use; and if your condition worsens or new symptoms arise, please return to the emergency room. She verbalized understanding and was discharged home with prescription for Meclazine. This is a brief summary of the patient's stay at this facility. For more detail , see patient's full chart. - Date & Time of H&P Date of H&P: 02/12/17 Time of H&P: 01:38 Discharge Exam - Head Exam Head Exam: ATRAUMATIC, NORMAL INSPECTION, NORMOCEPHALIC - Eye Exam Eye Exam: EOMI, Nystagmus (left lateral gaze), PERRL. absent: Normal appearance (proptosis) Pupil Exam: NORMAL ACCOMODATION, PERRL - ENT Exam ENT Exam: Mucous Membranes Moist, Normal Oropharynx - Respiratory Exam Respiratory Exam: NORMAL BREATHING PATTERN. absent: Rales, Rhonchi, Wheezes - Cardiovascular Exam Cardiovascular Exam: REGULAR RHYTHM, +S1, +S2. absent: Gallop, Rubs, Systolic Murmur - GI/Abdominal Exam GI & Abdominal Exam: Normal Bowel Sounds, Soft. absent: Distended, Guarding, Tenderness - Extremities Exam Extremities exam: normal capillary refill, normal inspection, pedal pulses present - Back Exam Back exam: NORMAL INSPECTION. absent: rash noted, tenderness - Neurological Exam Neurological exam: Alert, CN II-XII Intact, Normal Gait, Oriented x3 - Psychiatric Exam Psychiatric exam: Normal Affect, Normal Mood - Skin Skin Exam: Dry, Intact, Normal Color Discharge Plan - Discharge Medications Prescriptions: Meclizine [Meclizine*] 25 mg PO Q6 #30 tab - Follow Up Plan Condition: GOOD Disposition: HOME/ ROUTINE Instructions: Weight Loss Tips for Athletes (GEN), Meal Planning with Diabetes Exchanges (DC) Additional Instructions: You are medically stable for discharge. Please follow up with your primary care physician, infectious disease doctor, and neurologist within a week. Make sure to follow up with neurologist about your MRA. You are discharged with prescriptions for Meclazine for your dizziness. Please resume home medications and take as prescribed. Please keep a diabetic diet and have your A1C rechecked by primary care physician. Please get daily exercise for at least 30 minutes 3-4 days a week. Please refrain from alcohol, tobacco, or drug use. If your condition worsens or new symptoms arise, please return to the emergency room. <Penny MO,Chriss - Last Filed: 02/12/17 17:25> Provider - Provider Date of Admission: 02/12/17 00:34 Attending physician: Felipe Morillo MD Hospital Course - Lab Results Lab Results: Most Recent Lab Values WBC 7.4 10^3/ul (4.5-11.0) D 02/12/17 06:30 RBC 4.57 10^6/uL (3.5-6.1) 02/12/17 06:30 Hgb 10.7 gm/dL (12.0-16.0) L 02/12/17 06:30 Hct 33.5 % (36.0-48.0) L 02/12/17 06:30 MCV 73.3 fL (80.0-105.0) L 02/12/17 06:30 MCH 23.4 pg (25.0-35.0) L 02/12/17 06:30 MCHC 31.9 g/dl (31.0-37.0) 02/12/17 06:30 RDW 17.3 % (11.5-14.5) H 02/12/17 06:30 Plt Count 1198 10^3/uL (120.0-450.0) H* 02/12/17 06:30 MPV 8.5 fl (7.0-11.0) 02/12/17 06:30 Gran % 60.3 % (50.0-68.0) 02/12/17 06:30 Lymph % (Auto) 30.5 % (22.0-35.0) 02/12/17 06:30 Cedar % (Auto) 6.9 % (1.0-6.0) H 02/12/17 06:30 Eos % (Auto) 1.6 % (1.5-5.0) 02/12/17 06:30 Baso % (Auto) 0.7 % (0.0-3.0) 02/12/17 06:30 Gran # 4.48 (1.4-6.5) 02/12/17 06:30 Lymph # 2.3 (1.2-3.4) 02/12/17 06:30 Cedar # 0.5 (0.1-0.6) 02/12/17 06:30 Eos # 0.1 (0.0-0.7) 02/12/17 06:30 Baso # 0.05 K/mm3 (0.0-2.0) 02/12/17 06:30 PT 11.4 Seconds (9.9-11.8) 02/11/17 21:15 INR 1.06 (0.93-1.08) 02/11/17 21:15 APTT 31.3 Seconds (23.7-30.8) H 02/11/17 21:15 Sodium 140 mmol/L (132-148) 02/12/17 06:30 Potassium 3.5 mmol/L (3.6-5.0) L 02/12/17 06:30 Chloride 102 mmol/L (98-107) 02/12/17 06:30 Carbon Dioxide 28 mmol/L (21-33) 02/12/17 06:30 Anion Gap 14 (10-20) 02/12/17 06:30 BUN 8 mg/dL (7-21) 02/12/17 06:30 Creatinine 0.9 mg/dL (0.5-1.4) 02/12/17 06:30 Est GFR ( Amer) > 60 02/12/17 06:30 Est GFR (Non-Af Amer) > 60 02/12/17 06:30 Random Glucose 94 mg/dL (70-110) 02/12/17 06:30 Calcium 9.4 mg/dL (8.4-10.5) 02/12/17 06:30 Phosphorus 4.1 mg/dL (2.5-4.5) 02/12/17 06:30 Magnesium 2.4 mg/dL (1.7-2.2) H 02/12/17 06:30 Total Bilirubin 0.5 mg/dL (0.2-1.3) 02/12/17 06:30 AST 88 U/L (15-39) H 02/12/17 06:30 ALT 44 U/L (7-56) 02/12/17 06:30 Alkaline Phosphatase 127 U/L (38-133) 02/12/17 06:30 Total Creatine Kinase 189 U/L (35-230) 02/12/17 13:03 Troponin I < 0.01 ng/mL 02/12/17 13:03 Total Protein 8.3 g/dL (5.8-8.3) 02/12/17 06:30 Albumin 4.2 g/dL (3.0-4.8) 02/12/17 06:30 Globulin 4.1 gm/dL 02/12/17 06:30 Albumin/Globulin Ratio 1.0 (1.1-1.8) L 02/12/17 06:30 TSH 3rd Generation 1.82 mIU/mL (0.46-4.68) 02/11/17 21:15 Urine Color Yellow (YELLOW) 02/12/17 02:00 Urine Appearance Clear (CLEAR) 02/12/17 02:00 Urine pH 6.0 (4.7-8.0) 02/12/17 02:00 Ur Specific Coyle 1.020 (1.005-1.035) 02/12/17 02:00 Urine Protein Negative mg/dL (<30 mg/dL) 02/12/17 02:00 Urine Glucose (UA) Negative mg/dL (NEGATIVE) 02/12/17 02:00 Urine Ketones Negative mg/dL (NEGATIVE) 02/12/17 02:00 Urine Blood Negative (NEGATIVE) 02/12/17 02:00 Urine Nitrate Negative (NEGATIVE) 02/12/17 02:00 Urine Bilirubin Negative (NEGATIVE) 02/12/17 02:00 Urine Urobilinogen 1.0 E.U./dL (<1 E.U./dL) H 02/12/17 02:00 Ur Leukocyte Esterase Trace Yves/uL (NEGATIVE) H 02/12/17 02:00 Urine RBC TEST NOT PERFORMED 02/12/17 02:00 Urine WBC 0 - 2 /hpf (0-6) 02/12/17 02:00 Ur Epithelial Cells 4 - 5 /hpf (0-5) 02/12/17 02:00 Amorphous Sediment Few 02/12/17 02:00 Urine Bacteria Trace (NEG) 02/12/17 02:00 Urine HCG, Qual Negative (NEGATIVE) 02/12/17 02:00 Attending/Attestation - Attestation I have personally seen and examined this patient.: Yes I have fully participated in the care of the patient.: Yes I have reviewed all pertinent clinical information, including history, physical exam and plan: Yes Notes (Text): Patient was seen and examined with medical clerical assistant .Agreed with resident assessment and plan. 41 F with PMH of HIV,Essential thrombocytosis, recent small cerebellar infarct was admitted with dizziness, no focal deficit, MRI is normal, DC after PT evaluation, on hydroxyurea and aspirin for thrombocytosis, dose was recently increased for hydroxyurea(DC).She was evaluated by PT prior to discharge.She is ambulatory.She will follow up with hematology and her Neurologist. Management plan was discussed in detail with patient Education was provided.
[2017-02-12 16:41] VITALS: PULSE 84
[2017-02-16 14:56] LABS: VON WILLERBRAND FACTOR AG 71 % (50-217)
== END 2017-02-12 16:58 | disposition home or self-care (01) ==
LOC: ED 19:46 → ERH 02-12 00:34 → 2RNO 02-12 02:01
PROVIDERS: ADMIT Internal Medicine; ATTEND Internal Medicine
DX: R42 Dizziness and giddiness (principal); E87.6 Hypokalemia; D47.3 Essential (hemorrhagic) thrombocythemia; Z21 Asymptomatic human immunodeficiency virus [HIV] infection status; I10 Essential (primary) hypertension; R00.2 Palpitations; R07.89 Other chest pain; E11.9 Type 2 diabetes mellitus without complications; Z86.73 Personal history of transient ischemic attack (TIA), and cerebral infarction without residual deficits
CPT/HCPCS: 36415; 70450; 70551; 71010; 80053; 81001; 82554; 83735; 84100; 84443; 84484; 84703; 85025; 85240; 85245; 85246; 85247; 85610; 85730; 93005; 97116; 97162; 99285; G0378; G8978; G8979; G8980; J1650; J7040

== ENCOUNTER 2017-04-27 02:49 | Observation (INO) | payer BC ==
[2017-04-27 02:54] VITALS: BMI 37.0
--- NOTE | 2017-04-27 03:17 | ED PDOC ---
Arrival/HPI - General Chief Complaint: Chest Pain Time Seen by Provider: 04/27/17 02:52 Historian: Patient - History of Present Illness Narrative History of Present Illness (Text): 04/27/17 03:12 Jayla Bell is a 41 year old female, with a history of HIV, hypertension and essential thrombocytosis, presents to the emergency department complaining of 2 day duration of chest pain. States that pain was much worse tonight that she was unable to fall asleep. Denies any shortness of breath. She also notes that symptoms are accompanied with a posterior headache. Denies any fever, chills, dizziness, abdominal pain, nausea, vomiting, diarrhea, urinary symptoms , or any other complaints at this time. Time/Duration: Other (2 days ) Symptom Onset: Gradual Severity Level: Mild Activities at Onset: Light Past Medical History - Provider Review Nursing Documentation Reviewed: Yes - Infectious Disease Hx of Infectious Diseases: None - Tetanus Immunization Tetanus Immunization: Unknown - Cardiac Hx Hypertension: Yes - Pulmonary Hx Respiratory Disorders: No - Neurological Hx Neurological Disorder: No - HEENT Hx HEENT Disorder: No - Renal Hx Renal Disorder: No - Endocrine/Metabolic Hx Diabetes Mellitus Type 2: Yes - Hematological/Oncological Hx Blood Disorders: Yes Other/Comment: "High blood platelets - Essential Blood Thrombocytosis" - Integumentary Hx Dermatological Disorder: No - Musculoskeletal/Rheumatological Hx Musculoskeletal Disorders: No - Gastrointestinal Hx Gastrointestinal Disorders: No - Genitourinary/Gynecological Hx Genitourinary Disorders: No - Psychiatric Hx Psychophysiologic Disorder: No Hx Substance Use: No - Surgical History Hx Section: Yes Hx Dilation and Curettage: Yes - Anesthesia Hx Anesthesia: Yes Hx Anesthesia Reactions: No Hx Malignant Hyperthermia: No Family/Social History - Physician Review Nursing Documentation Reviewed: Yes Family/Social History: No Known Family HX Smoking Status: Never Smoked Hx Alcohol Use: No Hx Substance Use: No Allergies/Home Meds Allergies/Adverse Reactions: Allergies No Known Allergies Allergy (Verified 02/24/17 01:49) Home Medications: Home Meds Medication Instructions Recorded Confirmed Aspirin [Adult Low Dose Aspirin EC] 81 mg PO DAILY 04/27/17 04/28/17 Dolutegravir Sodium [Tivicay] 50 mg PO DAILY 04/27/17 04/28/17 Emtricitabine/Tenofovir Diso 1 tab PO DAILY 04/27/17 04/28/17 [Truvada 200 MG-300 MG] Ruxolitinib Phosphate [Jakafi] 15 mg PO BID 04/27/17 04/28/17 Valsartan/Hydrochlorothiazide 1 tab PO DAILY 04/27/17 04/27/17 [Diovan Hct 160-12.5 mg Tab] Review of Systems - Physician Review All systems were reviewed & negative as marked: Yes - Review of Systems Constitutional: Normal. absent: Fatigue, Fevers Respiratory: absent: SOB, Sputum Cardiovascular: Chest Pain Gastrointestinal: absent: Abdominal Pain, Diarrhea, Nausea, Vomiting Neurological: Headache (posterior headache ). absent: Dizziness Psychiatric: Normal Physical Exam Vital Signs Reviewed: Yes Vital Signs Temp Pulse Resp BP Pulse Ox 04/27/17 07:31 68 103/44 L 04/27/17 07:23 72 16 103/44 L 99 04/27/17 05:33 68 14 125/73 99 04/27/17 04:00 65 16 118/72 99 04/27/17 03:00 98.6 F 66 16 118/69 98 Temperature: Afebrile Blood Pressure: Normal Pulse: Regular Respiratory Rate: Normal Appearance: Positive for: Well-Appearing, Non-Toxic, Comfortable Pain Distress: None Mental Status: Positive for: Alert and Oriented X 3 - Systems Exam Head: Present: Atraumatic, Normocephalic Pupils: Present: PERRL Conjunctiva: Present: Normal Mouth: Present: Moist Mucous Membranes Respiratory/Chest: Present: Clear to Auscultation, Good Air Exchange. No: Respiratory Distress, Accessory Muscle Use Cardiovascular: Present: Regular Rate and Rhythm, Normal S1, S2. No: Murmurs Abdomen: Present: Normal Bowel Sounds. No: Tenderness, Distention, Peritoneal Signs Upper Extremity: Present: Normal Inspection. No: Cyanosis, Edema Lower Extremity: Present: Normal Inspection. No: Edema Neurological: Present: GCS=15, CN II-XII Intact, Speech Normal, Motor Func Grossly Intact, Normal Sensory Function Skin: Present: Warm, Dry, Normal Color. No: Rashes Psychiatric: Present: Alert, Oriented x 3, Normal Insight, Normal Concentration Medical Decision Making ED Course and Treatment: 04/27/17 03:18 Impression: A 41 year old female who presents to the emergency department Complaining of chest pain for past 2 days. Plan: -- EKG -- Labs, Cardiac enzymes -- Chest X-ray -- Aspirin -- Protonix -- Urinalysis -- Reassess and disposition Progress Notes: EKG reviewed by me: NSR @ 67 bpm. Non-specific T wave abnormalities. 04/27/17 04:32 Chest X-ray interpreted by me: No Acute disease. case d/w dr morton accepts case to tele 04/30/17 09:58 - Lab Interpretations Lab Results: 04/27/17 03:10 04/27/17 04:10 Lab Results 04/27/17 04:10: Beta HCG, Quant < 2.39 04/27/17 04:10: Hepatitis A IgM Ab Negative, Hep Bs Antigen Negative, Hep B Core IgM Ab Negative, Hepatitis C Antibody Negative 04/27/17 04:10: ESR 4 04/27/17 04:10: Triglycerides 83, Cholesterol 168, LDL Cholesterol Direct 97, HDL Cholesterol 44 04/27/17 04:10: PT 10.4, INR 0.96, APTT 30.8 04/27/17 04:10: D-Dimer, Quantitative 0.29 04/27/17 04:10: Sodium 142, Potassium 3.9, Chloride 104, Carbon Dioxide 25, Anion Gap 17, BUN 11, Creatinine 1.0, Est GFR ( Amer) > 60, Est GFR (Non- Af Amer) > 60, Random Glucose 105, Calcium 9.4, Magnesium 2.3 H, Total Bilirubin 0.3, AST 57 H, ALT 33, Alkaline Phosphatase 140 H, Lactate Dehydrogenase 359, Total Creatine Kinase 212, Troponin I < 0.01, Total Protein 8.3, Albumin 4.5, Globulin 3.8, Albumin/Globulin Ratio 1.2 04/27/17 03:10: Urine Color Yellow, Urine Appearance Sl cloudy, Urine pH 6.0, Ur Specific Termo >= 1.030, Urine Protein Trace H, Urine Glucose (UA) Negative , Urine Ketones Negative, Urine Blood Small H, Urine Nitrate Negative, Urine Bilirubin Negative, Urine Urobilinogen 0.2, Ur Leukocyte Esterase Negative, Urine RBC 1 - 3, Urine WBC 1 - 3, Ur Epithelial Cells 4 - 5, Urine Bacteria Mod 04/27/17 03:10: WBC 7.1, RBC 4.28, Hgb 11.1 L, Hct 34.2 L, MCV 79.9 L, MCH 25.9 , MCHC 32.5, RDW 20.8 H, Plt Count 901 H* D, MPV 9.0, Gran % 52.1, Lymph % (Auto ) 38.9 H, Posey % (Auto) 7.2 H, Eos % (Auto) 1.4 L, Baso % (Auto) 0.4, Gran # 3.67, Lymph # 2.7, Posey # 0.5, Eos # 0.1, Baso # 0.03 I have reviewed the lab results: Yes - RAD Interpretation Radiology Orders: 04/27/17 03:05 CHEST PORTABLE [RAD] Stat 04/27/17 04:33 ANGIO CHEST PE PROTOCOL [CT] Stat 04/27/17 04:34 HEAD W/O CONTRAST [CT] Stat - EKG Interpretation Interpreted by ED Physician: Yes Type: 12 lead EKG - Medication Orders Current Medication Orders: Discontinued Medications Alprazolam (Xanax) 0.25 mg PO TID PRN; Protocol PRN Reason: Anxiety Stop: 05/04/17 14:01 Last Admin: 04/27/17 15:46 Dose: 0.25 mg Re-Assess: Reassess Psych Meds Document 04/27/17 16:46 RDS (Rec: 04/27/17 17:18 RDS [id number]) Reassess Psych Med Effective Aspirin (Aspirin) 325 mg PO STAT STA Stop: 04/27/17 03:05 Last Admin: 04/27/17 03:30 Dose: 325 mg Aspirin (Ecotrin) 81 mg PO DAILY MALLIKA Last Admin: 04/28/17 09:30 Dose: 81 mg Atorvastatin Calcium (Lipitor) 40 mg PO DAILY MALLIKA Last Admin: 04/28/17 09:30 Dose: 40 mg Diphenhydramine HCl (Benadryl) 25 mg IVP ONCE ONE Stop: 04/27/17 05:38 Last Admin: 04/27/17 05:41 Dose: 25 mg Emtricitabine/Tenofovir (Truvada 200 Mg-300 Mg) 1 tab PO DAILY MALLIKA Last Admin: 04/28/17 09:30 Dose: 1 tab Enoxaparin Sodium (Lovenox) 120 mg SC STAT STA PRN Reason: Protocol Stop: 04/27/17 04:33 Last Admin: 04/27/17 05:29 Dose: 120 mg Hydrochlorothiazide (Microzide) 12.5 mg PO DAILY [facility] Sodium Chloride (Sodium Chloride 0.9%) 1,000 mls @ 80 mls/hr IV .[id number] [facility] Last Admin: 04/27/17 21:17 Dose: 80 mls/hr Cefepime HCl (Maxipime 1gm) 1 gm in 100 mls @ 100 mls/hr IVPB Q12 [facility] PRN Reason: Protocol Last Admin: 04/28/17 09:28 Dose: 100 mls/hr Iodixanol (Visipaque 320 Mg/Ml 100 Ml) Confirm Administered Dose 100 ml IV .STK- MED ONE Stop: 04/27/17 06:07 Losartan Potassium (Cozaar) 100 mg PO DAILY [facility] Metoprolol Tartrate (Lopressor) 25 mg PO BID [facility] Last Admin: 04/27/17 09:30 Dose: Morphine Sulfate (Morphine) 2 mg IVP STAT STA Stop: 04/27/17 04:33 Last Admin: 04/27/17 05:29 Dose: 2 mg Re-Assess: [facility] Pain Assessment Document 04/27/17 06:29 YP (Rec: 04/27/17 07:31 YP [id number]) Pain Reassessment Is this a pain reassessment? Yes Sleep Is patient sleeping during reassessment? No Presence of Pain Presence of Pain No Dolutegravir Sodium [Tivicay] 50 Mg ( Home Med) 50 mg PO DAILY [facility] Last Admin: 04/27/17 13:34 Dose: Ruxolitinib Phosphate [Jakafi] 15 Mg (Home Med) 15 mg PO BID [facility] Last Admin: 04/27/17 13:37 Dose: Dolutegravir Sodium [Tivicay] 50 Mg ( Home Med) 50 mg PO DAILY [facility] Ruxolitinib Phosphate [Jakafi] 15 Mg (Home Med) 15 mg PO BID [facility] Dolutegravir Sodium [Tivicay] 50 Mg ( Home Med) 50 mg PO DAILY [facility] Last Admin: 04/28/17 09:27 Dose: 50 mg Ruxolitinib Phosphate [Jakafi] 15 Mg (Home Med) 15 mg PO Q12 [facility] Last Admin: 04/28/17 09:27 Dose: 15 mg Pantoprazole Sodium (Protonix Inj) 40 mg IVP STAT STA Stop: 04/27/17 03:06 Last Admin: 04/27/17 03:29 Dose: 40 mg Pantoprazole Sodium (Protonix Ec Tab) 40 mg PO 0600,1600 [facility] Last Admin: 04/28/17 05:45 Dose: 40 mg Polyethylene Glycol (Miralax) 17 gm PO BID [facility] Last Admin: 04/28/17 09:30 Dose: 17 gm Propranolol HCl (Inderal) 40 mg PO Q12 [facility] Last Admin: 04/27/17 10:50 Dose: 40 mg Propranolol HCl (Inderal) 10 mg PO DAILY [facility] Last Admin: 04/28/17 09:30 Dose: 10 mg - Scribe Statement The provider has reviewed the documentation as recorded by the Maylin Juarez Provider Attestation: Provider Scribe Attestation: All medical record entries made by the Maylin were at my direction and personally dictated by me. I have reviewed the chart and agree that the record accurately reflects my personal performance of the history, physical exam, medical decision making, and the department course for this patient. I have also personally directed, reviewed, and agree with the discharge instructions and disposition. Disposition/Present on Arrival - Present on Arrival Any Indicators Present on Arrival: No History of DVT/PE: No History of Uncontrolled Diabetes: No Urinary Catheter: No History of Decub. Ulcer: No History Surgical Site Infection Following: None - Disposition Have Diagnosis and Disposition been Completed?: Yes Diagnosis: Chest pain, Thrombocytosis, HIV (human immunodeficiency virus infection) Disposition: HOSPITALIZED Disposition Time: 06:00 Condition: GOOD
[2017-04-27 03:47] LABS: URINE BILIRUBIN NEGATIVE (NEGATIVE); URINE BLOOD SMALL (NEGATIVE); URINE GLUCOSE (UA) NEGATIVE (NEGATIVE); URINE LEUKOCYTE ESTERASE NEGATIVE Leu/uL (NEGATIVE); URINE NITRATE NEGATIVE (NEGATIVE); URINE PROTEIN TRACE mg/dL (<30 mg/dL); URINE UROBILINOGEN 0.2 E.U./dL (<1 E.U./dL)
[2017-04-27 03:51] LABS: BASO # 0.03 K/mm3 (0.0-2.0); BASO % 0.4 % (0.0-3.0); EOS # 0.1 (0.0-0.7); EOS % 1.4 % (1.5-5.0); GRAN # 3.67 (1.4-6.5); GRAN % 52.1 % (50.0-68.0); HEMOGLOBIN 11.1 gm/dL (12.0-16.0); LYMPH # 2.7 (1.2-3.4); LYMPH % 38.9 % (22.0-35.0); MEAN CELL VOLUME 79.9 fL (80.0-105.0); MEAN CORPUSCULAR HEMOGLOBIN 25.9 pg (25.0-35.0); MEAN CORPUSCULAR HGB CONC 32.5 g/dl (31.0-37.0); MONO # 0.5 (0.1-0.6); MONO % 7.2 % (1.0-6.0); RBC 4.28 10^6/uL (3.5-6.1); RED CELL DISTRIBUTION WIDTH 20.8 % (11.5-14.5); WHITE BLOOD COUNT 7.1 10^3/ul (4.5-11.0)
[2017-04-27 03:53] LABS: URINE COLOR YELLOW (YELLOW)
[2017-04-27 03:54] LABS: URINE APPEARANCE SL CLOUDY (CLEAR)
[2017-04-27 03:56] LABS: PLATELET COUNT 901 10^3/uL (120.0-450.0)
[2017-04-27 04:13] LABS: URINE BACTERIA MOD (NEG)
[2017-04-27] MEDS ORDERED: Morphine 2 mg/ml ISec IVP STA (04:32)
[2017-04-27] MEDS ORDERED: Enoxaparin 120 mg Syringe SC STA (04:32)
[2017-04-27 04:52] LABS: ALB/GLOB RATIO 1.2 (1.1-1.8); ALBUMIN 4.5 g/dL (3.0-4.8); ALT/SGPT 33 U/L (7-56); AST/SGOT 57 U/L (15-39); BLOOD UREA NITROGEN 11 mg/dL (7-21); CALCIUM 9.4 mg/dL (8.4-10.5); GFR AFRICAN-AMERICAN > 60; GFR NON-AFRICAN AMERICAN > 60; MAGNESIUM 2.3 mg/dL (1.7-2.2)
[2017-04-27 05:04] LABS: TROPONIN I < 0.01 ng/mL
[2017-04-27] MEDS ORDERED: DiphenhydrAMINE 50 mg/ml Inj IVP ONE (05:37)
[2017-04-27] MEDS ORDERED: Iodixanol 320 MG/ML 100 ML BOTTLE IV ONE (06:06)
[2017-04-27 06:44] LABS: INR 0.96 (0.93-1.08); PARTIAL THROMBOPLASTIN TIME 30.8 Seconds (23.7-30.8); PROTHROMBIN TIME 10.4 Seconds (9.9-11.8)
[2017-04-27 06:45] LABS: HDL CHOLESTEROL 44 mg/dL (29-60)
[2017-04-27 06:56] LABS: LDL CHOLESTEROL 97 mg/dL (0-129)
[2017-04-27] MEDS: Pantoprazole 40 mg EC Tab PO SCH ×2 (07:31→17:18)
[2017-04-27] MEDS: Sodium Chloride 0.9% 1,000 ML IV SCH ×2 (07:31→21:17)
--- NOTE | 2017-04-27 07:32 | CT ---
PROCEDURE: CT HEAD WITHOUT CONTRAST. HISTORY: Headache COMPARISON: None available. TECHNIQUE: Axial computed tomography images were obtained through the head/brain without intravenous contrast. Radiation dose: Total exam DLP = 699.75 mGy-cm. This CT exam was performed using one or more of the following dose reduction techniques: Automated exposure control, adjustment of the mA and/or kV according to patient size, and/or use of iterative reconstruction technique. FINDINGS: HEMORRHAGE: No intracranial hemorrhage. BRAIN: Caruso-white matter differentiation is preserved. There is no mass, mass effect or abnormal extra-axial fluid collection. VENTRICLES: The ventricles are normal in size, shape and configuration. CALVARIUM: The skull base and calvarium are normal. PARANASAL SINUSES: Predominantly clear. MASTOID AIR CELLS: Predominantly clear. OTHER FINDINGS: None. IMPRESSION: No acute intracranial abnormality.
[2017-04-27] MEDS: Cefepime 1gm in NS 100ml 1 GM/100 ML BAG IVPB SCH ×3 (07:36→21:23)
--- NOTE | 2017-04-27 07:36 | RAD ---
HISTORY: cp COMPARISON: 02/11/2017 FINDINGS: LUNGS: No active pulmonary disease. PLEURA: No significant pleural effusion identified, no pneumothorax apparent. CARDIOVASCULAR: Normal. OSSEOUS STRUCTURES: No significant abnormalities. VISUALIZED UPPER ABDOMEN: Normal. OTHER FINDINGS: None. IMPRESSION: No active disease.
--- NOTE | 2017-04-27 07:42 | CT ---
PROCEDURE: CT Abdomen and Pelvis with contrast HISTORY: Abdominal pain and chest pain COMPARISON: None. TECHNIQUE: CT scan of the abdomen and pelvis was performed after intravenous administration of contrast. Oral contrast was not administered. Coronal and sagittal reformatted images were obtained. Contrast dose: 100 mL Visipaque Radiation dose: Total exam DLP = 1402.14 mGy-cm. This CT exam was performed using one or more of the following dose reduction techniques: Automated exposure control, adjustment of the mA and/or kV according to patient size, and/or use of iterative reconstruction technique. FINDINGS: LOWER THORAX: The lung bases are clear. There are tiny calcifications in the right lung base. LIVER: Normal in size. There are few move simple cysts in the right hepatic lobe, the largest measures 15 mm. No ductal dilatation. GALLBLADDER AND BILE DUCTS: There are few small gallstones. PANCREAS: The pancreas is normal in size. No gross lesion or ductal dilatation. SPLEEN: There is borderline splenomegaly. ADRENALS: Both adrenal glands are normal in size without discrete nodule. KIDNEYS AND URETERS: Both kidneys are normal in size. There is a 11 mm simple cyst in the left lower pole. VASCULATURE: Unremarkable. No aortic aneurysm. BOWEL: The small bowel loops are normal in caliber. There is moderate amount of stool scattered throughout the colon. APPENDIX: Normal appendix. PERITONEUM: No free fluid. No free air. LYMPH NODES: No enlarged lymph nodes. BLADDER: Unremarkable. REPRODUCTIVE: The uterus is normal in size. There is a 4.6 cm simple cyst in the left adnexa. BONES: No acute fracture. Degenerative disc disease at L5-S1. OTHER FINDINGS: None. IMPRESSION: No acute abdominal or pelvic abnormality. 4.6 cm simple cyst in the left adnexa is most compatible with an ovarian cyst. Follow-up pelvic ultrasound in 3-6 months interval is recommended to assess stability/resolution. A preliminary report was provided by [facility].
--- NOTE | 2017-04-27 07:55 | CT ---
PROCEDURE: CT Chest with contrast (Pulmonary Angiogram) HISTORY: Chest pain COMPARISON: None available. TECHNIQUE: Axial computed tomography images were obtained of the chest in the pulmonary arterial phase of enhancement. Coronal and sagittal reformatted images were created and reviewed. Intravenous contrast dose: 100 mL Visipaque Radiation dose: Total exam DLP = 739.40 mGy-cm. This CT exam was performed using one or more of the following dose reduction techniques: Automated exposure control, adjustment of the mA and/or kV according to patient size, and/or use of iterative reconstruction technique. FINDINGS: PULMONARY ARTERIES: Evaluation is limited due to missed bolus. No large filling defects in the pulmonary arteries to suggest acute pulmonary embolism. AORTA: No acute findings. No thoracic aortic aneurysm. LUNGS: The lungs are clear. No nodule, mass or pulmonary consolidation. PLEURAL SPACES: No effusion or pneumothorax. HEART: No cardiomegaly. No significant pericardial effusion. LYMPH NODES: No lymphadenopathy. BONES, CHEST WALL: Unremarkable. No fracture or destructive lesion OTHER FINDINGS: There is a 14 mm low-attenuation nodule in the right thyroid lobe. IMPRESSION: 1. Limited evaluation of the pulmonary arteries due to missed bolus. Allowing for this no large central pulmonary embolism. 2. No evidence of consolidation, pleural effusion or pneumothorax. 3. 14 mm nodule in the right thyroid lobe. A dedicated thyroid ultrasound is recommended for further characterization.
--- NOTE | 2017-04-27 08:14 | US ---
HISTORY: TRANSAMINITIS COMPARISON: None. TECHNIQUE: Grayscale imaging was performed. FINDINGS: LIVER: Measures 20.6 cm. There is diffuse increased echogenicity of the liver parenchyma. No mass. No intrahepatic bile duct dilatation. GALLBLADDER: There are no gallstones, wall thickening or pericholecystic fluid. The sonographic Harris's sign is negative. COMMON BILE DUCT: Measures 6.0 mm. No stones. No dilatation. PANCREAS: Unremarkable as visualized. No mass. No ductal dilatation. RIGHT KIDNEY: Measures 13.2cm. Normal echogenicity. No calculus, mass, or hydronephrosis. LEFT KIDNEY: Measures 14.2cm. Normal echogenicity. No calculus, mass, or hydronephrosis. SPLEEN: Normal in size and contour. No mass. AORTA: No aneurysmal dilatation. IVC: Unremarkable. OTHER FINDINGS: None. IMPRESSION: Moderate hepatomegaly. Diffuse increased echogenicity in the liver may reflect hepatic steatosis however parenchymal infectious/ inflammatory etiologies cannot be entirely excluded. Clinical and laboratory correlation is advised.
--- NOTE | 2017-04-27 08:54 | US ---
HISTORY: NODULE TECHNIQUE: Grayscale imaging was performed. COMPARISON: None FINDINGS: RIGHT LOBE: Measures 5.7 x 1.7 x 2.5 cm. Normal echotexture and flow. Nodules: There is 5 x 4 x 4 mm cystic nodule in the upper pole laterally and a 26 x 16 x 18 mm solid isoechoic nodule in the lower pole with mild peripheral increased vascularity. LEFT LOBE: Measures 4.5 x 1.9 x 4.4 cm. Normal echotexture and flow. Nodules: There is a 6 x 4 x 4 mm cystic nodule in the interpolar region. ISTHMUS: Measures cm. Normal echotexture and flow. Nodules: None OTHER FINDINGS: None . IMPRESSION: Enlarged multinodular thyroid gland with asymmetric enlargement of the right thyroid lobe and a dominant 26 mm solid nodule with peripheral increased vascularity in the right lower pole.
[2017-04-27] MEDS: Emtricitabine-Tenofovir 200 mg-300 mg Tab PO SCH (09:36)
[2017-04-27] MEDS ORDERED: RUXOLITINIB PHOSPHATE 15 MG PO SCH ×2 (10:00→12:05)
[2017-04-27] MEDS ORDERED: Dolutegravir Sodium [Tivicay] 50 mg (HOME MED) PO SCH ×2 (10:00→12:02)
--- NOTE | 2017-04-27 10:55 | CP.PCM.HP ---
Addendum entered and electronically signed by Charles Mckeon DO 04/27/17 17:48: Seen and examined with Dr. Varghese. Agree with exam and plan. 41 yo F with hx HIV, HTN, Thrombocytosis presenting for persisting chest pain x2 days. CTA obtained but poorly coordinated dye so V/Q scan ordered as per primary. Trops negative x3. Original Note: <Champ Varghese - Last Filed: 04/27/17 11:12> History of Present Illness - History of Present Illness History of Present Illness: Patient is a 41 year old female with PMHx of HVI, HTN, essential thrombocytosis presents to the ED for evaluation of retrosternal chest pain which began approximately 2 days ago. The pain was exacerbated from her baseline and so she decided to have it evaluated. Her associated symptoms include a headache localized to the posterior aspect of the head along with neck discomfort. Denies any fever, chills, dizziness, SOB, abdominal pain, nausea, vomiting, diarrhea, and urinary symptoms. PMH; HIV, HTN, essential thrombocytosis, L cerebellar infarct PSH: x 1, D & C (10/2016) All: Denies SH: Denies ETOH use, remote limited hx of tobacco use- 1 pk per week x 3-4 mos 13-14 yrs ago, denies illicit drug use; works on computers PMD: [facility] Outpatient ID: [id number] Outpatient neuro: Trace Key Outpatient heme: Jayme Varghese [facility]acy: [facility] meds: Tivicy, Truvada, Jakivi, valsartan/HCTZ, ASA 325mg QD Present on Admission - Present on Admission Any Indicators Present on Admission: No Review of Systems - Review of Systems Review of Systems: Please refer to HPI Past Patient History - Infectious Disease Hx of Infectious Diseases: None - Tetanus Immunizations Tetanus Immunization: Unknown - Past Social History Smoking Status: Never Smoked - CARDIAC Hx Hypertension: Yes - PULMONARY Hx Respiratory Disorders: No - NEUROLOGICAL Hx Neurological Disorder: No - HEENT Hx HEENT Problems: No - RENAL Hx Chronic Kidney Disease: No - ENDOCRINE/METABOLIC Hx Diabetes Mellitus Type 2: Yes - HEMATOLOGICAL/ONCOLOGICAL Hx Blood Disorders: Yes Other/Comment: "High blood platelets - Essential Blood Thrombocytosis" - INTEGUMENTARY Hx Dermatological Problems: No - MUSCULOSKELETAL/RHEUMATOLOGICAL Hx Musculoskeletal Disorders: No - GASTROINTESTINAL Hx Gastrointestinal Disorders: No - GENITOURINARY/GYNECOLOGICAL Hx Genitourinary Disorders: No - PSYCHIATRIC Hx Psychophysiologic Disorder: No Hx Substance Use: No - SURGICAL HISTORY Hx Section: Yes Hx Dilation and Curettage: Yes - ANESTHESIA Hx Anesthesia: Yes Hx Anesthesia Reactions: No Hx Malignant Hyperthermia: No Meds Home Medications: Home Medication List Medication Instructions Recorded Confirmed Type ALPRAZolam [Xanax] 0.25 mg PO TID PRN #30 tab 04/28/17 Rx Atorvastatin [Lipitor] 40 mg PO DAILY #30 tab 04/28/17 Rx Dolutegravir Sodium [Tivicay] 50 mg PO DAILY 04/28/17 Rx Emtricitabine/Tenofovir Diso 1 tab PO DAILY tab 04/28/17 Rx [Truvada 200 MG-300 MG] Pantoprazole [Protonix EC Tab] 40 mg PO 0600,1600 #30 ect 04/28/17 Rx Polyethylene Glycol 3350 [Miralax] 17 gm PO BID #60 packet 04/28/17 Rx Propranolol [Inderal] 10 mg PO DAILY #30 tab 04/28/17 Rx Allergies/Adverse Reactions: Allergies Allergy/AdvReac Type Severity Reaction Status Date / Time No Known Allergies Allergy Verified 02/24/17 01:49 Physical Exam - Constitutional Appears: Non-toxic, No Acute Distress - Head Exam Head Exam: ATRAUMATIC, NORMAL INSPECTION Additional comments: facial acne present moderate facial hair present predominantly along cheeks bilaterally - Eye Exam Eye Exam: EOMI. absent: Conjunctival injection Additional comments: exophthalamos bilaterally scleral discoloration bilaterally nonicteric - ENT Exam ENT Exam: Mucous Membranes Moist, Normal Exam - Neck Exam Additional comments: thyroid nodules palpated thyroid enlarged - Respiratory Exam Respiratory Exam: Clear to Auscultation Bilateral, NORMAL BREATHING PATTERN. absent: Accessory Muscle Use, Rales, Rhonchi, Wheezes - Cardiovascular Exam Cardiovascular Exam: REGULAR RHYTHM, +S1, +S2 - GI/Abdominal Exam GI & Abdominal Exam: Soft. absent: Rebound, Rigid, Tenderness - Extremities Exam Extremities exam: Positive for: normal inspection. Negative for: tenderness - Psychiatric Exam Psychiatric exam: Normal Affect, Normal Mood Additional comments: patient is awake, alert, responds to verbal stimuli, follows commands, and moves extremities past midline - Skin Additional comments: darkening of skin around neck Results - Vital Signs Recent Vital Signs: Last Vital Signs Temp 98.6 F 04/27/17 03:00 Pulse 68 04/27/17 07:31 Resp 16 04/27/17 07:23 BP 103/44 L 04/27/17 07:31 Pulse Ox 99 04/27/17 07:23 - Labs Result Diagrams: 04/27/17 03:10 04/27/17 04:10 Assessment & Plan - Assessment and Plan (Free Text) Assessment: Patient is a 41 year old F w/PMH sig for HIV, HTN, essential thrombocytosis admitted under observation status for evaluation and treatment of chest pain and neck pain. Plan: 1. Chest pain, rule out - ACS and PE - Troponins trended - Cardiology consult - ECHO pending - Lower extremity dopplers - heart healthy diet 2. Thyroid Nodules Palpated - TSH - Thyroid U/S 3. HTN - continue home propanolol 4. HIV - continue home Emtricitabine / Tenofovir - continue home Dolutegravir 5. Thrombocytosis - continue home Ruxolitinib 6. Reported Diabetes, details- unconfirmed diagnosis, patient states A1C is 7 - A1c orderd - reports from [facility] [place] 7. Anxious - xanax prn 8. PPx - lovenox - protonixs Patient seen, evaluated, and discussed with attending, Dr. Haley. <Geronimo Haley U - Last Filed: 05/12/17 09:52> Results - Vital Signs Recent Vital Signs: Last Vital Signs Temp 98.6 F 04/27/17 11:59 Pulse 81 04/27/17 14:00 Resp 18 04/27/17 11:59 BP 119/69 04/27/17 11:59 Pulse Ox 99 04/27/17 07:23 - Labs Result Diagrams: 04/28/17 08:20 04/28/17 08:20 Labs: Laboratory Results - last 24 hr 04/27/17 04/27/17 11:30 11:30 Total Creatine Kinase 214 Troponin I < 0.01 Free T4 0.83 Thyroxine (T4) 8.5 TSH 3rd Generation 1.44 Assessment & Plan - Assessment and Plan (Free Text) Assessment: A/P: CHEST PAIN ETIOLOGY ?? 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 PATIENT SEEN AND EXAMINED H&P REVIEWED BY RESIDENT ALL DETAILS D/W PATIENT REGARDING RX AND TESTING. Attending/Attestation - Attestation I have personally seen and examined this patient.: Yes I have fully participated in the care of the patient.: Yes I have reviewed all pertinent clinical information: Yes
--- NOTE | 2017-04-27 11:37 | CP.PCM.CON ---
History of Present Illness - History of Present Illness History of Present Illness: Cardiology consult 41 year old woman here w chest pain and SOB PMH hypertension Obesity No previous cardiac hx recent workup for same chest pain....normal perfusion stress test at [facility] [place] PMH HIV hx SH does not smokd ROS No new sxs PE heavy set woman in NAD VSS neck neg JVD Lungs clear cor S1S2 est without edema EKG NS ST flattening Trop neg x1 Impressions: chest pain...non cardiac SOB HIV obesity hypertension Plan V/Q scan since CT results not accurate Noah Rodriguez MD Past Patient History - Infectious Disease Hx of Infectious Diseases: None - Tetanus Immunizations Tetanus Immunization: Unknown - Past Social History Smoking Status: Never Smoked - CARDIAC Hx Hypertension: Yes - PULMONARY Hx Respiratory Disorders: No - NEUROLOGICAL Hx Neurological Disorder: No - HEENT Hx HEENT Problems: No - RENAL Hx Chronic Kidney Disease: No - ENDOCRINE/METABOLIC Hx Diabetes Mellitus Type 2: Yes - HEMATOLOGICAL/ONCOLOGICAL Hx Blood Disorders: Yes Other/Comment: "High blood platelets - Essential Blood Thrombocytosis" - INTEGUMENTARY Hx Dermatological Problems: No - MUSCULOSKELETAL/RHEUMATOLOGICAL Hx Musculoskeletal Disorders: No - GASTROINTESTINAL Hx Gastrointestinal Disorders: No - GENITOURINARY/GYNECOLOGICAL Hx Genitourinary Disorders: No - PSYCHIATRIC Hx Psychophysiologic Disorder: No Hx Substance Use: No - SURGICAL HISTORY Hx Section: Yes Hx Dilation and Curettage: Yes - ANESTHESIA Hx Anesthesia: Yes Hx Anesthesia Reactions: No Hx Malignant Hyperthermia: No Meds Allergies/Adverse Reactions: Allergies Allergy/AdvReac Type Severity Reaction Status Date / Time No Known Allergies Allergy Verified 02/24/17 01:49 - Medications Medications: Current Medications Alprazolam (Xanax) 0.25 mg PO TID PRN; Protocol PRN Reason: Anxiety Stop: 05/04/17 14:01 Aspirin (Ecotrin) 81 mg PO DAILY [facility] Last Admin: 04/27/17 09:36 Dose: 81 mg Atorvastatin Calcium (Lipitor) 40 mg PO DAILY [facility] Last Admin: 04/27/17 09:30 Dose: Not Given Emtricitabine/Tenofovir (Truvada 200 Mg-300 Mg) 1 tab PO DAILY [facility] Last Admin: 04/27/17 09:36 Dose: 1 tab Sodium Chloride (Sodium Chloride 0.9%) 1,000 mls @ 80 mls/hr IV .[id number] [facility] Last Admin: 04/27/17 07:31 Dose: 80 mls/hr Cefepime HCl (Maxipime 1gm) 1 gm in 100 mls @ 100 mls/hr IVPB Q12 [facility] PRN Reason: Protocol Last Admin: 04/27/17 09:30 Dose: Not Given Dolutegravir Sodium [Tivicay] 50 Mg ( Home Med) 50 mg PO DAILY [facility] Ruxolitinib Phosphate [Jakafi] 15 Mg (Home Med) 15 mg PO BID [facility] Pantoprazole Sodium (Protonix Ec Tab) 40 mg PO 0600,1600 [facility] Last Admin: 04/27/17 07:31 Dose: 40 mg Propranolol HCl (Inderal) 40 mg PO Q12 [facility] Last Admin: 04/27/17 10:50 Dose: 40 mg Results - Vital Signs Recent Vital Signs: Last Vital Signs Temp 98.5 F 04/27/17 10:53 Pulse 68 04/27/17 10:53 Resp 18 04/27/17 10:53 BP 128/76 04/27/17 10:53 Pulse Ox 99 04/27/17 07:23 - Labs Result Diagrams: 04/27/17 03:10 04/27/17 04:10
[2017-04-27 12:01] LABS: TROPONIN I < 0.01 ng/mL
[2017-04-27 12:05] LABS: FREE T4 0.83 ng/dL (0.78-2.19); T4 8.5 ug/dL (5.5-11.0)
--- NOTE | 2017-04-27 12:36 | CARD ---
APPROVED REPORT EKG Measurement Heart [id number] <Conclusion> Normal sinus rhythm Normal ECG
--- NOTE | 2017-04-27 12:40 | CARD ---
APPROVED REPORT EKG Measurement Heart [id number] <Conclusion> Normal sinus rhythm Nonspecific T wave abnormality Abnormal ECG
[2017-04-27] MEDS: Dolutegravir Sodium [Tivicay] 50 mg (HOME MED) PO SCH (13:36)
--- NOTE | 2017-04-27 14:27 | CARD ---
APPROVED REPORT EXAM: Two-dimensional and M-mode echocardiogram with Doppler and color Doppler. INDICATION 2D DIMENSIONS IVSd1.2 (0.7-1.1cm)LVDd4.6 (3.9-5.9cm) PWd1.1 (0.7-1.1cm)LVDs3.3 (2.5-4.0cm) FS (%) 28.6 %LVEF (%)55.1 (>50%) M-Mode DIMENSIONS Left Atrium (MM)3.60 (2.5-4.0cm)Aortic Root3.10 (2.2-3.7cm) Aortic Cusp Exc.2.20 (1.5-2.0cm) Aortic Valve AoV Peak Eobfdyzq205.0cm/Travis Peak GR.10mmHg Mitral Valve MV E Vsdraivv72.8cm/sMV A Frfzveab76.2cm/sE/A ratio1.4 TDI Lateral E' Peak V8.29cm/sMedial E' Peak V7.99cm/sE/Lateral E'10.7 E/Medial E'11.1 Tricuspid Valve TR Peak Ipmvsvuh533fr/sRAP [id number] Peak Gr.28mmHg [id number] LEFT VENTRICLE The left ventricle is normal size. There is normal left ventricular wall thickness. The left ventricular function is normal. The left ventricular ejection fraction is within the normal range. There is normal LV segmental wall motion. The left ventricular diastolic function is normal. RIGHT VENTRICLE The right ventricle is normal size. There is normal right ventricular wall thickness. The right ventricular systolic function is normal. ATRIA The left atrium size is normal. The right atrium size is normal. AORTIC VALVE The aortic valve is not well visualized. No aortic regurgitation is present. MITRAL VALVE The mitral valve is normal in structure. There is no mitral valve regurgitation noted. TRICUSPID VALVE There is mild tricuspid regurgitation. There is mild pulmonary hypertension. PULMONIC VALVE There is mild pulmonic valvular regurgitation. GREAT VESSELS The aortic root is normal in size. The IVC is normal in size and collapses >50% with inspiration. <Conclusion> The left ventricle is normal size. There is normal left ventricular wall thickness. The left ventricular function is normal. The left ventricular ejection fraction is within the normal range. There is normal LV segmental wall motion. The left ventricular diastolic function is normal. There is mild tricuspid regurgitation. There is mild pulmonary hypertension. There is mild pulmonic valvular regurgitation.
[2017-04-27 16:52] LABS: HEPATITIS B SURFACE AG NEGATIVE (NEGATIVE)
[2017-04-27 16:57] LABS: HEPATITIS A IGM NEGATIVE (NEGATIVE)
[2017-04-27 16:58] LABS: HEPATITIS B CORE AB NEGATIVE (NEGATIVE)
[2017-04-27 17:10] LABS: HEPATITIS C ANTIBODY NEGATIVE (NEGATIVE)
[2017-04-27] MEDS: POLYETHYLENE GLYCOL 3350 17 GM/Dose PACKET PO SCH (17:17)
[2017-04-27 17:31] LABS: TROPONIN I < 0.01 ng/mL
--- NOTE | 2017-04-27 19:36 | US ---
HISTORY: Leg pain and swelling. Evaluate for DVT PHYSICIAN(S): Noah Skinner MD. TECHNIQUE: Duplex sonography and color-flow Doppler with graded compression were used to evaluate the deep venous systems of both lower extremities. FINDINGS: The visualized deep venous systems of both lower extremities are sonographically normal and compressible. Normal wave forms and augmentation are seen. There is no sonographic evidence for deep venous thrombosis in the visualized segments of both lower extremities. IMPRESSION: No sonographic evidence for deep venous thrombosis in the visualized segments of both lower extremities.
[2017-04-27] MEDS: RUXOLITINIB PHOSPHATE 15 MG PO SCH (21:41)
[2017-04-28] MEDS: Pantoprazole 40 mg EC Tab PO SCH (05:45)
[2017-04-28 06:37] VITALS: TEMP 98.4; O2SAT 97
[2017-04-28 08:39] LABS: BASO # 0.02 K/mm3 (0.0-2.0); BASO % 0.3 % (0.0-3.0); EOS # 0.1 (0.0-0.7); EOS % 1.4 % (1.5-5.0); GRAN # 3.29 (1.4-6.5); GRAN % 57.4 % (50.0-68.0); HEMOGLOBIN 10.7 gm/dL (12.0-16.0); MEAN CORPUSCULAR HEMOGLOBIN 25.7 pg (25.0-35.0); MEAN CORPUSCULAR HGB CONC 31.8 g/dl (31.0-37.0); MEAN PLATELET VOLUME 8.7 fl (7.0-11.0); MONO # 0.3 (0.1-0.6); MONO % 5.9 % (1.0-6.0); RBC 4.16 10^6/uL (3.5-6.1); RED CELL DISTRIBUTION WIDTH 20.3 % (11.5-14.5); WHITE BLOOD COUNT 5.7 10^3/ul (4.5-11.0)
[2017-04-28 08:45] LABS: PLATELET COUNT 754 10^3/uL (120.0-450.0)
[2017-04-28 09:02] LABS: ALBUMIN 3.9 g/dL (3.0-4.8); ALT/SGPT 31 U/L (7-56); AST/SGOT 57 U/L (15-39); BLOOD UREA NITROGEN 13 mg/dL (7-21); CALCIUM 8.7 mg/dL (8.4-10.5); GFR AFRICAN-AMERICAN > 60; GFR NON-AFRICAN AMERICAN > 60; MAGNESIUM 2.4 mg/dL (1.7-2.2)
--- NOTE | 2017-04-28 09:17 | CP.PCM.PN ---
<Champ Varghese - Last Filed: 04/28/17 13:12> Subjective - Date & Time of Evaluation Date of Evaluation: 04/28/17 Time of Evaluation: 07:30 - Subjective Subjective: Patient seen and examined at bedside. No acute events overnight. Patient is resting comfortably in bed. Offers no new complaints at this time. States that she intermittently experiences posterior neck discomfort which leads to a posterior head headache. Admits to feeling "jittery" last night but was improved with the use of xanax. New lab results and imaging were discussed with patient. Denies fever, chills, dizziness chest pain, SOB, abdominal pain, N/V. Objective - Vital Signs/Intake and Output Vital Signs (last 24 hours): Temp Pulse Resp BP Pulse Ox 98.4 F 71 22 107/66 97 04/28/17 06:00 04/28/17 06:00 04/28/17 06:00 04/28/17 06:00 04/28/17 06:00 Intake and Output: 04/28/17 04/28/17 06:59 18:59 Intake Total 2400 Output Total 900 Balance 1500 - Medications Medications: Current Medications Alprazolam (Xanax) 0.25 mg PO TID PRN; Protocol PRN Reason: Anxiety Stop: 05/04/17 14:01 Last Admin: 04/27/17 15:46 Dose: 0.25 mg Aspirin (Ecotrin) 81 mg PO DAILY [facility] Last Admin: 04/27/17 09:36 Dose: 81 mg Atorvastatin Calcium (Lipitor) 40 mg PO DAILY [facility] Last Admin: 04/27/17 09:30 Dose: Not Given Emtricitabine/Tenofovir (Truvada 200 Mg-300 Mg) 1 tab PO DAILY [facility] Last Admin: 04/27/17 09:36 Dose: 1 tab Sodium Chloride (Sodium Chloride 0.9%) 1,000 mls @ 80 mls/hr IV .[id number] [facility] Last Admin: 04/27/17 21:17 Dose: 80 mls/hr Cefepime HCl (Maxipime 1gm) 1 gm in 100 mls @ 100 mls/hr IVPB Q12 MALLIKA PRN Reason: Protocol Last Admin: 04/27/17 21:23 Dose: 100 mls/hr Dolutegravir Sodium [Tivicay] 50 Mg ( Home Med) 50 mg PO DAILY [facility] Last Admin: 04/27/17 13:36 Dose: 50 mg Ruxolitinib Phosphate [Jakafi] 15 Mg (Home Med) 15 mg PO Q12 [facility] Last Admin: 04/27/17 21:41 Dose: 15 mg Pantoprazole Sodium (Protonix Ec Tab) 40 mg PO 0600,1600 [facility] Last Admin: 04/28/17 05:45 Dose: 40 mg Polyethylene Glycol (Miralax) 17 gm PO BID [facility] Last Admin: 04/27/17 17:17 Dose: 17 gm Propranolol HCl (Inderal) 10 mg PO DAILY [facility] Last Admin: 04/27/17 17:17 Dose: Not Given - Labs Labs: 04/28/17 08:20 04/28/17 08:20 PT 10.4 Seconds (9.9-11.8) 04/27/17 04:10 INR 0.96 (0.93-1.08) 04/27/17 04:10 APTT 30.8 Seconds (23.7-30.8) 04/27/17 04:10 - Additional Findings Additional findings: - Constitutional Appears: Non-toxic, No Acute Distress - Head Exam Head Exam: ATRAUMATIC, NORMAL INSPECTION Additional comments: facial acne present moderate facial hair present predominantly along cheeks bilaterally - Eye Exam Eye Exam: EOMI. absent: Conjunctival injection Additional comments: exophthalamos bilaterally scleral discoloration bilaterally nonicteric - ENT Exam ENT Exam: Mucous Membranes Moist, Normal Exam - Neck Exam Additional comments: thyroid nodules palpated thyroid enlarged - Respiratory Exam Respiratory Exam: Clear to Auscultation Bilateral, NORMAL BREATHING PATTERN. absent: Accessory Muscle Use, Rales, Rhonchi, Wheezes - Cardiovascular Exam Cardiovascular Exam: REGULAR RHYTHM, +S1, +S2 - GI/Abdominal Exam GI & Abdominal Exam: Soft. absent: Rebound, Rigid, Tenderness - Extremities Exam Extremities exam: Positive for: normal inspection. Negative for: tenderness - Psychiatric Exam Psychiatric exam: Normal Affect, Normal Mood Additional comments: patient is awake, alert, responds to verbal stimuli, follows commands, and moves extremities past midline - Skin Additional comments: darkening of skin around neck Assessment and Plan - Assessment and Plan (Free Text) Assessment: Patient is a 41 year old F w/PMH sig for HIV, HTN, essential thrombocytosis in hosptial day #2 under observation status for evaluation and treatment of chest pain and neck pain. Plan: 1. Chest pain, rule out - ACS and PE - Troponins trend reviewed and found to be negative - Cardiology consult- VQ scan ordered and pending - ECHO reviewed- normal ejection fraction - Lower extremity dopplers- negative for DVT - heart healthy diet 2. Thyroid Nodules Palpated - thyroglobulin - thyroid AB - thyroid peroxidase 3. HTN - continue home propanolol 4. HIV - continue home Emtricitabine / Tenofovir - continue home Dolutegravir 5. Thrombocytosis - continue home Ruxolitinib 6. Reported Diabetes, details- unconfirmed diagnosis, patient states A1C is 7 - A1c orderd - reports from [facility] [place]- community service specialist seconding request x 2 today 7. Anxious - xanax prn 8. PPx - lovenox - protonixs Patient seen, evaluated, and discussed with attending, Dr. Haley. <Geronimo Haley - Last Filed: 05/12/17 09:53> Objective - Vital Signs/Intake and Output Vital Signs (last 24 hours): Temp Pulse Resp BP Pulse Ox 98.4 F 86 18 116/71 97 04/28/17 06:00 04/28/17 09:30 04/28/17 09:00 04/28/17 09:30 04/28/17 09:00 - Labs Labs: 04/28/17 08:20 04/28/17 08:20 PT 10.4 Seconds (9.9-11.8) 04/27/17 04:10 INR 0.96 (0.93-1.08) 04/27/17 04:10 APTT 30.8 Seconds (23.7-30.8) 04/27/17 04:10 Assessment and Plan - Assessment and Plan (Free Text) Assessment: A/P: CHEST PAIN ETIOLOGY ?? 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 Plan: A/P: CHEST PAIN ETIOLOGY ?? 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 Attending/Attestation - Attestation I have personally seen and examined this patient.: Yes I have fully participated in the care of the patient.: Yes I have reviewed all pertinent clinical information, including history, physical exam and plan: Yes
[2017-04-28] MEDS: RUXOLITINIB PHOSPHATE 15 MG PO SCH (09:27)
[2017-04-28] MEDS: Dolutegravir Sodium [Tivicay] 50 mg (HOME MED) PO SCH (09:27)
[2017-04-28] MEDS: Cefepime 1gm in NS 100ml 1 GM/100 ML BAG IVPB SCH (09:28)
[2017-04-28] MEDS: Emtricitabine-Tenofovir 200 mg-300 mg Tab PO SCH (09:30)
[2017-04-28] MEDS: POLYETHYLENE GLYCOL 3350 17 GM/Dose PACKET PO SCH (09:30)
[2017-04-28 09:31] VITALS: BP 116/71; PULSE 86
[2017-04-28 10:22] VITALS: RESP 18
--- NOTE | 2017-04-28 11:54 | NM ---
COMPARISON: Chest x-ray 04/27/2017 TECHNIQUE: 36.3 mCi technetium 99-m DTPA aerosol. 3.8 mCI technetium 99-m MAA administered intravenously. FINDINGS: VENTILATION COMPONENT: Normal. PERFUSION COMPONENT: Normal. IMPRESSION: Lowprobability ventilation perfusion scan for pulmonary embolism.
--- NOTE | 2017-04-28 13:11 | CT ---
PROCEDURE: CT Neck, Chest, without contrast HISTORY: thyromegally, shortness of breath COMPARISON: None. TECHNIQUE: Contrast dose: None Radiation dose: Total exam DLP = 1377 mGy-cm. This CT exam was performed using one or more of the following dose reduction techniques: Automated exposure control, adjustment of the mA and/or kV according to patient size, and/or use of iterative reconstruction technique. FINDINGS: CT OF THE NECK: PHARYNX: Nasopharynx: Unremarkable. Oropharnx: Unremarkable. Hypopharynx: Unremarkable. LYMPH NODES: Unremarkable. VASCULATURE: Unremarkable. GLANDS: There is a 12 x 16 mm nodule in the right lobe of the thyroid. The left lobe is unremarkable CERVICAL SPINE: Unremarkable. CT OF THE CHEST: LUNGS: Clear lungs. Visualized airway clear. MEDIASTINUM: Unremarkable thoracic aorta. No aneurysm or dissection. Normal sized heart. Pulmonary arterial truck unremarkable. No vascular congestion. No lymphadenopathy. PLEURA: No pleural fluid. No pneumothorax. BONES: No fracture. No destructive lesion. IMPRESSION: Nodule in the right lobe of the thyroid. The study is otherwise unremarkable
--- NOTE | 2017-04-28 13:20 | CP.PCM.DIS ---
<Champ Varghese - Last Filed: 04/28/17 13:27> Provider - Provider Date of Admission: 04/27/17 06:14 Attending physician: Geronimo Haley MD Primary care physician: Papito Basurto MD Time Spent in preparation of Discharge (in minutes): 30 Diagnosis - Discharge Diagnosis (1) Thyroid nodule Status: Acute Priority: Medium (2) Headache Status: Acute Priority: Medium (3) Thrombocytosis Status: Acute Priority: Medium (4) Chest pain Status: Acute Priority: High Hospital Course - Lab Results Lab Results: Most Recent Lab Values WBC 5.7 10^3/ul (4.5-11.0) 04/28/17 08:20 RBC 4.16 10^6/uL (3.5-6.1) 04/28/17 08:20 Hgb 10.7 gm/dL (12.0-16.0) L 04/28/17 08:20 Hct 33.7 % (36.0-48.0) L 04/28/17 08:20 MCV 81.0 fL (80.0-105.0) 04/28/17 08:20 MCH 25.7 pg (25.0-35.0) 04/28/17 08:20 MCHC 31.8 g/dl (31.0-37.0) 04/28/17 08:20 RDW 20.3 % (11.5-14.5) H 04/28/17 08:20 Plt Count 754 10^3/uL (120.0-450.0) H* 04/28/17 08:20 MPV 8.7 fl (7.0-11.0) 04/28/17 08:20 Gran % 57.4 % (50.0-68.0) 04/28/17 08:20 Lymph % (Auto) 35.0 % (22.0-35.0) 04/28/17 08:20 Hinds % (Auto) 5.9 % (1.0-6.0) 04/28/17 08:20 Eos % (Auto) 1.4 % (1.5-5.0) L 04/28/17 08:20 Baso % (Auto) 0.3 % (0.0-3.0) 04/28/17 08:20 Gran # 3.29 (1.4-6.5) 04/28/17 08:20 Lymph # 2.0 (1.2-3.4) 04/28/17 08:20 Hinds # 0.3 (0.1-0.6) 04/28/17 08:20 Eos # 0.1 (0.0-0.7) 04/28/17 08:20 Baso # 0.02 K/mm3 (0.0-2.0) 04/28/17 08:20 ESR 4 mm/hr (0.0-20.0) 04/27/17 04:10 PT 10.4 Seconds (9.9-11.8) 04/27/17 04:10 INR 0.96 (0.93-1.08) 04/27/17 04:10 APTT 30.8 Seconds (23.7-30.8) 04/27/17 04:10 D-Dimer, Quantitative 0.29 mg/L FEU (0-0.50) 04/27/17 04:10 Sodium 142 mmol/L (132-148) 04/28/17 08:20 Potassium 4.3 mmol/L (3.6-5.0) 04/28/17 08:20 Chloride 108 mmol/L (98-107) H 04/28/17 08:20 Carbon Dioxide 25 mmol/L (21-33) 04/28/17 08:20 Anion Gap 13 (10-20) 04/28/17 08:20 BUN 13 mg/dL (7-21) 04/28/17 08:20 Creatinine 1.0 mg/dL (0.5-1.4) 04/28/17 08:20 Est GFR ( Amer) > 60 04/28/17 08:20 Est GFR (Non-Af Amer) > 60 04/28/17 08:20 Random Glucose 98 mg/dL (70-110) 04/28/17 08:20 Hemoglobin A1c 6.6 % (4.2-6.5) H 04/27/17 11:30 Calcium 8.7 mg/dL (8.4-10.5) 04/28/17 08:20 Phosphorus 3.5 mg/dL (2.5-4.5) 04/28/17 08:20 Magnesium 2.4 mg/dL (1.7-2.2) H 04/28/17 08:20 Total Bilirubin 0.3 mg/dL (0.2-1.3) 04/28/17 08:20 AST 57 U/L (15-39) H 04/28/17 08:20 ALT 31 U/L (7-56) 04/28/17 08:20 Alkaline Phosphatase 130 U/L (38-133) 04/28/17 08:20 Lactate Dehydrogenase 359 U/L (333-699) 04/27/17 04:10 Total Creatine Kinase 215 U/L (35-230) 04/27/17 17:00 Troponin I < 0.01 ng/mL 04/27/17 17:00 Total Protein 7.7 g/dL (5.8-8.3) 04/28/17 08:20 Albumin 3.9 g/dL (3.0-4.8) 04/28/17 08:20 Globulin 3.8 gm/dL 04/28/17 08:20 Albumin/Globulin Ratio 1.0 (1.1-1.8) L 04/28/17 08:20 Triglycerides 83 mg/dL (35-160) 04/27/17 04:10 Cholesterol 168 mg/dL (130-200) 04/27/17 04:10 LDL Cholesterol Direct 97 mg/dL (0-129) 04/27/17 04:10 HDL Cholesterol 44 mg/dL (29-60) 04/27/17 04:10 Free T4 0.83 ng/dL (0.78-2.19) 04/27/17 11:30 Thyroxine (T4) 8.5 ug/dL (5.5-11.0) 04/27/17 11:30 TSH 3rd Generation 1.44 mIU/mL (0.46-4.68) 04/27/17 11:30 Beta HCG, Quant < 2.39 mIU/mL (0-6.15) 04/27/17 04:10 Urine Color Yellow (YELLOW) 04/27/17 03:10 Urine Appearance Sl cloudy (CLEAR) 04/27/17 03:10 Urine pH 6.0 (4.7-8.0) 04/27/17 03:10 Ur Specific [place] >= 1.030 (1.005-1.035) 04/27/17 03:10 Urine Protein Trace mg/dL (<30 mg/dL) H 04/27/17 03:10 Urine Glucose (UA) Negative mg/dL (NEGATIVE) 04/27/17 03:10 Urine Ketones Negative mg/dL (NEGATIVE) 04/27/17 03:10 Urine Blood Small (NEGATIVE) H 04/27/17 03:10 Urine Nitrate Negative (NEGATIVE) 04/27/17 03:10 Urine Bilirubin Negative (NEGATIVE) 04/27/17 03:10 Urine Urobilinogen 0.2 E.U./dL (<1 E.U./dL) 04/27/17 03:10 Ur Leukocyte Esterase Negative Yves/uL (NEGATIVE) 04/27/17 03:10 Urine RBC 1 - 3 /hpf (0-2) 04/27/17 03:10 Urine WBC 1 - 3 /hpf (0-6) 04/27/17 03:10 Ur Epithelial Cells 4 - 5 /hpf (0-5) 04/27/17 03:10 Urine Bacteria Mod (NEG) 04/27/17 03:10 Hepatitis A IgM Ab Negative (NEGATIVE) 04/27/17 04:10 Hep Bs Antigen Negative (NEGATIVE) 04/27/17 04:10 Hep B Core IgM Ab Negative (NEGATIVE) 04/27/17 04:10 Hepatitis C Antibody Negative (NEGATIVE) 04/27/17 04:10 - Hospital Course Hospital Course: Please see today's progress note for further details. Patient is a 41 year old F w/PMH sig for HIV, HTN, essential thrombocytosis admitted under observation status for evaluation and treatment of chest pain and neck pain. With the use of physical examinations, lab work, and imaging the patient was ruled out for e a PE and ACS. She is stable for discharge to home. Patient instructed to resume all home medications and present to her PCP within 1 week for follow up. Patient instructed to return to ED for evaluation if she experiences fever, chills, chest pain, SOB, abdominal pain, intractable nausea/vomitting, diarrhea, constipation, any urinary symptoms , any new or worsening symptoms. Discharge Exam - Head Exam Head Exam: ATRAUMATIC, NORMAL INSPECTION - Additional Findings Additional findings: - Constitutional Appears: Non-toxic, No Acute Distress - Head Exam Head Exam: ATRAUMATIC, NORMAL INSPECTION Additional comments: facial acne present moderate facial hair present predominantly along cheeks bilaterally - Eye Exam Eye Exam: EOMI. absent: Conjunctival injection Additional comments: exophthalamos bilaterally scleral discoloration bilaterally nonicteric - ENT Exam ENT Exam: Mucous Membranes Moist, Normal Exam - Neck Exam Additional comments: thyroid nodules palpated thyroid enlarged - Respiratory Exam Respiratory Exam: Clear to Auscultation Bilateral, NORMAL BREATHING PATTERN. absent: Accessory Muscle Use, Rales, Rhonchi, Wheezes - Cardiovascular Exam Cardiovascular Exam: REGULAR RHYTHM, +S1, +S2 - GI/Abdominal Exam GI & Abdominal Exam: Soft. absent: Rebound, Rigid, Tenderness - Extremities Exam Extremities exam: Positive for: normal inspection. Negative for: tenderness - Psychiatric Exam Psychiatric exam: Normal Affect, Normal Mood Additional comments: patient is awake, alert, responds to verbal stimuli, follows commands, and moves extremities past midline - Skin Additional comments: darkening of skin around neck Discharge Plan - Discharge Medications Prescriptions: ALPRAZolam [Xanax] 0.25 mg PO TID PRN #30 tab PRN Reason: Anxiety Atorvastatin [Lipitor] 40 mg PO DAILY #30 tab Pantoprazole [Protonix EC Tab] 40 mg PO 0600,1600 #30 ect Polyethylene Glycol 3350 [Miralax] 17 gm PO BID #60 packet Propranolol [Inderal] 10 mg PO DAILY #30 tab - Follow Up Plan Condition: GOOD Disposition: HOME/ ROUTINE Instructions: Chest Pain (DC), Chest Pain (GEN) Additional Instructions: DISCHARGE HOME FOLLOW UP WITHIN 1 WEEK HEART HEALTHY DIET COPY TO PATIENT UPON DISCHARGE. Referrals: Geronimo Haley MD [Staff Provider] - 1 Week (DISCHARGE HOME FOLLOW UP WITHIN 1 WEEK HEART HEALTHY DIET COPY TO PATIENT UPON DISCHARGE.) <Geronimo Haley - Last Filed: 04/28/17 13:38> Provider - Provider Date of Admission: 04/27/17 06:14 Attending physician: Geronimo Haley MD Primary care physician: Papito Basurto MD Hospital Course - Lab Results Lab Results: Most Recent Lab Values WBC 5.7 10^3/ul (4.5-11.0) 04/28/17 08:20 RBC 4.16 10^6/uL (3.5-6.1) 04/28/17 08:20 Hgb 10.7 gm/dL (12.0-16.0) L 04/28/17 08:20 Hct 33.7 % (36.0-48.0) L 04/28/17 08:20 MCV 81.0 fL (80.0-105.0) 04/28/17 08:20 MCH 25.7 pg (25.0-35.0) 04/28/17 08:20 MCHC 31.8 g/dl (31.0-37.0) 04/28/17 08:20 RDW 20.3 % (11.5-14.5) H 04/28/17 08:20 Plt Count 754 10^3/uL (120.0-450.0) H* 04/28/17 08:20 MPV 8.7 fl (7.0-11.0) 04/28/17 08:20 Gran % 57.4 % (50.0-68.0) 04/28/17 08:20 Lymph % (Auto) 35.0 % (22.0-35.0) 04/28/17 08:20 Hinds % (Auto) 5.9 % (1.0-6.0) 04/28/17 08:20 Eos % (Auto) 1.4 % (1.5-5.0) L 04/28/17 08:20 Baso % (Auto) 0.3 % (0.0-3.0) 04/28/17 08:20 Gran # 3.29 (1.4-6.5) 04/28/17 08:20 Lymph # 2.0 (1.2-3.4) 04/28/17 08:20 Hinds # 0.3 (0.1-0.6) 04/28/17 08:20 Eos # 0.1 (0.0-0.7) 04/28/17 08:20 Baso # 0.02 K/mm3 (0.0-2.0) 04/28/17 08:20 ESR 4 mm/hr (0.0-20.0) 04/27/17 04:10 PT 10.4 Seconds (9.9-11.8) 04/27/17 04:10 INR 0.96 (0.93-1.08) 04/27/17 04:10 APTT 30.8 Seconds (23.7-30.8) 04/27/17 04:10 D-Dimer, Quantitative 0.29 mg/L FEU (0-0.50) 04/27/17 04:10 Sodium 142 mmol/L (132-148) 04/28/17 08:20 Potassium 4.3 mmol/L (3.6-5.0) 04/28/17 08:20 Chloride 108 mmol/L (98-107) H 04/28/17 08:20 Carbon Dioxide 25 mmol/L (21-33) 04/28/17 08:20 Anion Gap 13 (10-20) 04/28/17 08:20 BUN 13 mg/dL (7-21) 04/28/17 08:20 Creatinine 1.0 mg/dL (0.5-1.4) 04/28/17 08:20 Est GFR ( Amer) > 60 04/28/17 08:20 Est GFR (Non-Af Amer) > 60 04/28/17 08:20 Random Glucose 98 mg/dL (70-110) 04/28/17 08:20 Hemoglobin A1c 6.6 % (4.2-6.5) H 04/27/17 11:30 Calcium 8.7 mg/dL (8.4-10.5) 04/28/17 08:20 Phosphorus 3.5 mg/dL (2.5-4.5) 04/28/17 08:20 Magnesium 2.4 mg/dL (1.7-2.2) H 04/28/17 08:20 Total Bilirubin 0.3 mg/dL (0.2-1.3) 04/28/17 08:20 AST 57 U/L (15-39) H 04/28/17 08:20 ALT 31 U/L (7-56) 04/28/17 08:20 Alkaline Phosphatase 130 U/L (38-133) 04/28/17 08:20 Lactate Dehydrogenase 359 U/L (333-699) 04/27/17 04:10 Total Creatine Kinase 215 U/L (35-230) 04/27/17 17:00 Troponin I < 0.01 ng/mL 04/27/17 17:00 Total Protein 7.7 g/dL (5.8-8.3) 04/28/17 08:20 Albumin 3.9 g/dL (3.0-4.8) 04/28/17 08:20 Globulin 3.8 gm/dL 04/28/17 08:20 Albumin/Globulin Ratio 1.0 (1.1-1.8) L 04/28/17 08:20 Triglycerides 83 mg/dL (35-160) 04/27/17 04:10 Cholesterol 168 mg/dL (130-200) 04/27/17 04:10 LDL Cholesterol Direct 97 mg/dL (0-129) 04/27/17 04:10 HDL Cholesterol 44 mg/dL (29-60) 04/27/17 04:10 Free T4 0.83 ng/dL (0.78-2.19) 04/27/17 11:30 Thyroxine (T4) 8.5 ug/dL (5.5-11.0) 04/27/17 11:30 TSH 3rd Generation 1.44 mIU/mL (0.46-4.68) 04/27/17 11:30 Beta HCG, Quant < 2.39 mIU/mL (0-6.15) 04/27/17 04:10 Urine Color Yellow (YELLOW) 04/27/17 03:10 Urine Appearance Sl cloudy (CLEAR) 04/27/17 03:10 Urine pH 6.0 (4.7-8.0) 04/27/17 03:10 Ur Specific [place] >= 1.030 (1.005-1.035) 04/27/17 03:10 Urine Protein Trace mg/dL (<30 mg/dL) H 04/27/17 03:10 Urine Glucose (UA) Negative mg/dL (NEGATIVE) 04/27/17 03:10 Urine Ketones Negative mg/dL (NEGATIVE) 04/27/17 03:10 Urine Blood Small (NEGATIVE) H 04/27/17 03:10 Urine Nitrate Negative (NEGATIVE) 04/27/17 03:10 Urine Bilirubin Negative (NEGATIVE) 04/27/17 03:10 Urine Urobilinogen 0.2 E.U./dL (<1 E.U./dL) 04/27/17 03:10 Ur Leukocyte Esterase Negative Yves/uL (NEGATIVE) 04/27/17 03:10 Urine RBC 1 - 3 /hpf (0-2) 04/27/17 03:10 Urine WBC 1 - 3 /hpf (0-6) 04/27/17 03:10 Ur Epithelial Cells 4 - 5 /hpf (0-5) 04/27/17 03:10 Urine Bacteria Mod (NEG) 04/27/17 03:10 Hepatitis A IgM Ab Negative (NEGATIVE) 04/27/17 04:10 Hep Bs Antigen Negative (NEGATIVE) 04/27/17 04:10 Hep B Core IgM Ab Negative (NEGATIVE) 04/27/17 04:10 Hepatitis C Antibody Negative (NEGATIVE) 04/27/17 04:10 Discharge Exam - Additional Findings Additional findings: FINAL PROGRESS NOTE AND DISCHARGE SUMMARY: Assessment & Plan - Assessment and Plan (Free Text) Assessment: A/P: CHEST PAIN ETIOLOGY ?? 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 PRE DIABETES HGB A1C 6.6 PATIENT SEEN AND EXAMINED IN ROOM 275-1 ALL DETAILS D/W PATIENT REGARDING RX AND TESTING. STRESS TEST FROM [facility] [place] REVIEWED NEGATIVE FOR ISCHEMIA.DONE 04/06/2017. PATIENT CLEARED BY CARDIOLOGY FOR DISCHARGE. DISCHARGE MEDS AND FOLLOW UP PER DISCHARGE PLAN.
--- NOTE | 2017-04-28 16:39 | CARD ---
APPROVED REPORT EKG Measurement Heart [id number] <Conclusion> Normal sinus rhythm Normal ECG
--- NOTE | 2017-05-05 15:18 | CP.PCM.PN ---
Subjective - Date & Time of Evaluation Date of Evaluation: 04/28/17 Time of Evaluation: 15:00 - Subjective Subjective: Patient is a female presenting asymptomatic and notes she is chest pain free. Objective - Vital Signs/Intake and Output Vital Signs (last 24 hours): Temp Pulse Resp BP Pulse Ox 98.4 F 86 18 116/71 97 04/28/17 06:00 04/28/17 09:30 04/28/17 09:00 04/28/17 09:30 04/28/17 09:00 Blood Pressure: 107/66 Heart Rate: 70s - Labs Labs: 04/28/17 08:20 04/28/17 08:20 PT 10.4 Seconds (9.9-11.8) 04/27/17 04:10 INR 0.96 (0.93-1.08) 04/27/17 04:10 APTT 30.8 Seconds (23.7-30.8) 04/27/17 04:10 Troponin: Negative x2 EKG: Shows no change. Echocardiogram: Reveals normal LV function. Stress test: Unremarkable, was done several weeks ago at [facility]. - Neck Exam Additional comments: Negative JVD - Respiratory Exam Respiratory Exam: absent: Rales - Cardiovascular Exam Cardiovascular Exam: +S1, +S2 - Extremities Exam Additional comments: No Edema Assessment and Plan - Assessment and Plan (Free Text) Assessment: 1)Chest pain which is atypical 2)No evidence for acute coronary syndrome 3)History of HIV 4)Obesity 5)HTN Plan: 1)Given these findings, the patient's cardiac status is stable. There is a low probability for PE, her shortness of breath is now resolved. 2)Will D/C telemetry. 3)Have given her an outpatient follow up, will D/C telemetry.
== END 2017-04-28 14:55 | disposition home or self-care (01) ==
LOC: ED 02:49 → ERH 06:14 → 2RSO 09:09
PROVIDERS: ADMIT Internal Medicine; ATTEND Internal Medicine
DX: R07.2 Precordial pain (principal); B20 Human immunodeficiency virus [HIV] disease; D64.9 Anemia, unspecified; D47.3 Essential (hemorrhagic) thrombocythemia; E04.2 Nontoxic multinodular goiter; E11.9 Type 2 diabetes mellitus without complications; E66.01 Morbid (severe) obesity due to excess calories; E78.5 Hyperlipidemia, unspecified; F41.9 Anxiety disorder, unspecified; I10 Essential (primary) hypertension; K59.00 Constipation, unspecified; K76.0 Fatty (change of) liver, not elsewhere classified; K76.89 Other specified diseases of liver; K80.20 Calculus of gallbladder without cholecystitis without obstruction; N28.1 Cyst of kidney, acquired; N39.0 Urinary tract infection, site not specified; Z79.82 Long term (current) use of aspirin; Z86.73 Personal history of transient ischemic attack (TIA), and cerebral infarction without residual deficits; R40.2412 Glasgow coma scale score 13-15, at arrival to emergency department; Z87.891 Personal history of nicotine dependence; L70.9 Acne, unspecified; E04.9 Nontoxic goiter, unspecified; I95.9 Hypotension, unspecified; R74.0 Nonspecific elevation of levels of transaminase and lactic acid dehydrogenase [LDH]; R16.2 Hepatomegaly with splenomegaly, not elsewhere classified; R80.9 Proteinuria, unspecified; R51 Headache; M54.2 Cervicalgia
CPT/HCPCS: 36415; 70450; 70490; 71010; 71250; 71275; 74177; 76536; 76700; 78582; 80053; 80061; 80074; 81001; 82550; 83036; 83615; 83735; 84100; 84439; 84443; 84484; 84702; 85025; 85378; 85610; 85651; 85730; 86376; 86800; 87086; 93005; 93306; 93970; 96365; 96366; 96372; 96375; 99285; C9113; G0378; J0692; J1200; J1650; J2270; J7040; Q9967

== ENCOUNTER 2017-06-27 18:47 | Observation (INO) | payer BC ==
[2017-06-27 19:11] VITALS: O2SAT 100
--- NOTE | 2017-06-27 19:24 | ED PDOC ---
Arrival/HPI - General Chief Complaint: Chest Pain Time Seen by Provider: 06/27/17 19:10 Historian: Patient - History of Present Illness Narrative History of Present Illness (Text): 06/27/17 19:19 A 41 year old obese female, whose past medical history includes of HIV positive , thrombocystosis, pre diabetic, and TIA, presents to the emergency department or complaints of intermittent chest discomfort and pressure to her upper anterior chest radiating to her neck, which began today. The patient states she also has an associating headache past couple of days, some dizziness, and occasional shortness of breath. She denies any fever, nausea, vomiting, back pain, or any other complaints at this time. PMD: Dr. Haley Time/Duration: < week (x 2-3 days ) Symptom Onset: Sudden Symptom Course: Unchanged Quality: Pressure Activities at Onset: Light Context: Home Past Medical History - Provider Review Nursing Documentation Reviewed: Yes - Infectious Disease Hx of Infectious Diseases: None - Tetanus Immunization Tetanus Immunization: Unknown - Cardiac Hx Hypertension: Yes - Pulmonary Hx Respiratory Disorders: No - Neurological Hx Transient Ischemic Attacks (TIA): Yes (December 2016) - HEENT Hx HEENT Disorder: No - Renal Hx Renal Disorder: No - Endocrine/Metabolic Hx Diabetes Mellitus Type 2: Yes (Pre diabetic) - Hematological/Oncological Hx Blood Disorders: Yes Other/Comment: "High blood platelets - Essential Blood Thrombocytosis" - Integumentary Hx Dermatological Disorder: No - Musculoskeletal/Rheumatological Hx Musculoskeletal Disorders: No - Gastrointestinal Hx Gastrointestinal Disorders: No - Genitourinary/Gynecological Hx Genitourinary Disorders: No - Psychiatric Hx Psychophysiologic Disorder: No Hx Substance Use: No - Surgical History Hx Section: Yes Hx Dilation and Curettage: Yes - Anesthesia Hx Anesthesia: Yes Hx Anesthesia Reactions: No Hx Malignant Hyperthermia: No Family/Social History - Physician Review Nursing Documentation Reviewed: Yes Family/Social History: Unknown Family HX Smoking Status: Never Smoked Hx Alcohol Use: No Hx Substance Use: No Allergies/Home Meds Allergies/Adverse Reactions: Allergies No Known Allergies Allergy (Verified 06/27/17 18:58) Home Medications: Home Meds Medication Instructions Recorded Confirmed Aspirin [Adult Low Dose Aspirin EC] 81 mg PO DAILY 04/27/17 06/27/17 Dolutegravir Sodium [Tivicay] 50 mg PO DAILY 04/27/17 06/27/17 Ruxolitinib Phosphate [Jakafi] 15 mg PO BID 04/27/17 06/27/17 Valsartan/Hydrochlorothiazide 1 tab PO DAILY MDD 320/12.5 04/27/17 06/27/17 [Diovan Hct 160-12.5 mg Tab] Review of Systems - Physician Review All systems were reviewed & negative as marked: Yes - Review of Systems Constitutional: absent: Fevers Respiratory: SOB (occasionally) Cardiovascular: Chest Pain Gastrointestinal: absent: Nausea, Vomiting Musculoskeletal: Neck Pain. absent: Back Pain Neurological: Headache, Dizziness (mild ) Physical Exam Vital Signs Reviewed: Yes Vital Signs Temp Pulse Resp BP Pulse Ox 06/27/17 19:10 98.8 F 94 H 17 123/69 100 Temperature: Afebrile Blood Pressure: Normal Pulse: Tachycardic Respiratory Rate: Normal Appearance: Positive for: Well-Appearing, Non-Toxic, Comfortable Pain Distress: None Mental Status: Positive for: Alert and Oriented X 3 - Systems Exam Head: Present: Atraumatic, Normocephalic Pupils: Present: PERRL Extroacular Muscles: Present: EOMI Conjunctiva: Present: Normal Mouth: Present: Moist Mucous Membranes Neck: Present: Normal Range of Motion Respiratory/Chest: Present: Clear to Auscultation, Good Air Exchange. No: Respiratory Distress, Accessory Muscle Use Cardiovascular: Present: Tachycardic. No: Murmurs Abdomen: Present: Normal Bowel Sounds. No: Tenderness, Distention, Peritoneal Signs Back: Present: Normal Inspection Upper Extremity: Present: Normal Inspection. No: Cyanosis, Edema Lower Extremity: Present: Normal Inspection. No: Edema Neurological: Present: GCS=15, CN II-XII Intact, Speech Normal Skin: Present: Warm, Dry, Normal Color. No: Rashes Psychiatric: Present: Alert, Oriented x 3, Normal Insight, Normal Concentration Medical Decision Making ED Course and Treatment: 06/27/17 19:26 Impression: A 41 year old female with chest discomfort and pressure. Plan: -- EKG -- Head CT -- Chest X-ray -- Labs -- Reassess and disposition Prior Visits: Notes and results from previous visits were reviewed. The patient was last seen in the emergency department on 04/27/17 for chest pain. The patient was hospitalized. Progress Notes: EKG: Ordered, reviewed, and independently interpreted the EKG. Rate : 107 BPM Rhythm : Sinus Tachycardia Interpretation : Possible anterior infarct. Nonspecific ST/T changes. 06/27/17 21:25 Reviewed CXR, shows no acute processes. 06/27/17 21:46 CT Head shows: Brain: No hemorrhage. No significant white matter disease. No edema. Ventricles: No hydrocephalus. Bones: Skull is intact. Sinuses: No acute sinusitis. Mastoid air cells: No mastoid effusion. IMPRESSION: No CT evidence of acute intracranial abnormality. 06/27/17 23:[address] Wiley, covering for Dr. Haley, who is aware and agrees with plan. Pt will go to Telemetry observation for chest pain under Dr. Haley's service. Requests Dr. Rodriguez on consult. - Lab Interpretations Lab Results: 06/27/17 19:30 06/27/17 19:30 Lab Results 06/27/17 19:30: WBC 10.6 D, RBC 3.75, Hgb 10.4 L, Hct 31.7 L, MCV 84.5, MCH 27.7, MCHC 32.8, RDW 17.9 H, Plt Count 912 H* D, MPV 8.5 06/27/17 19:30: Free T4 0.84, TSH 3rd Generation 1.45 06/27/17 19:30: Sodium 141, Potassium 4.3, Chloride 103, Carbon Dioxide 27, Anion Gap 15, BUN 11, Creatinine 0.9, Est GFR ( Amer) > 60, Est GFR (Non- Af Amer) > 60, Random Glucose 113 H, Calcium 9.3, Total Bilirubin 0.2, AST 43 H , ALT 40, Alkaline Phosphatase 112, Lactate Dehydrogenase 505, Total Creatine Kinase 428 H, CK-MB (CK-2) 1.5, CK-MB (CK-2) % Cancelled, Troponin I < 0.01, NT- Pro-B Natriuret Pep 21.3, Total Protein 8.2, Albumin 4.6, Globulin 3.7, Albumin/ Globulin Ratio 1.2 06/27/17 19:30: PT 10.7, INR 0.99, APTT 27.5, D-Dimer, Quantitative 0.46 I have reviewed the lab results: Yes - RAD Interpretation Radiology Orders: 06/27/17 19:18 CHEST PORTABLE [RAD] Stat 06/27/17 19:24 HEAD W/O CONTRAST [CT] Stat Optical Coating Technician: ED Physician, Radiologist - EKG Interpretation Interpreted by ED Physician: Yes Type: 12 lead EKG - Medication Orders Current Medication Orders: Discontinued Medications Aspirin (Aspirin) 325 mg PO ONCE STA Stop: 06/27/17 22:39 Morphine Sulfate (Morphine) 2 mg IVP STAT STA Stop: 06/27/17 22:39 - Scribe Statement The provider has reviewed the documentation as recorded by the Scribe Miriam Arroyo Provider Scribe Attestation: All medical record entries made by the Scribe were at my direction and personally dictated by me. I have reviewed the chart and agree that the record accurately reflects my personal performance of the history, physical exam, medical decision making, and the department course for this patient. I have also personally directed, reviewed, and agree with the discharge instructions and disposition. Disposition/Present on Arrival - Present on Arrival Any Indicators Present on Arrival: No History of DVT/PE: No History of Uncontrolled Diabetes: No Urinary Catheter: No History of Decub. Ulcer: No History Surgical Site Infection Following: None - Disposition Have Diagnosis and Disposition been Completed?: Yes Diagnosis: Chest pain Disposition: HOSPITALIZED Disposition Time: 23:20 Patient Plan: Observation Condition: STABLE Discharge Instructions (ExitCare): Chest Pain (ED) Referrals: Geronimo Haley MD [Primary Care Provider] - Follow up with primary Forms: [employer] ([place])
[2017-06-27 19:46] LABS: HEMATOCRIT 31.7 % (36.0-48.0); MEAN CELL VOLUME 84.5 fl (80.0-105.0); MEAN CORPUSCULAR HEMOGLOBIN 27.7 pg (25.0-35.0); MEAN CORPUSCULAR HGB CONC 32.8 g/dl (31.0-37.0); MEAN PLATELET VOLUME 8.5 fl (7.0-11.0); RED CELL DISTRIBUTION WIDTH 17.9 % (11.5-14.5); WHITE BLOOD COUNT 10.6 10^3/ul (4.5-11.0)
[2017-06-27 20:02] LABS: INR 0.99 (0.93-1.08); PARTIAL THROMBOPLASTIN TIME 27.5 Seconds (23.7-30.8)
[2017-06-27 20:08] LABS: D DIMER 0.46 mg/L FEU (0-0.50)
[2017-06-27 20:19] LABS: FREE T4 0.84 ng/dL (0.78-2.19)
[2017-06-27 20:31] LABS: ALB/GLOB RATIO 1.2 (1.1-1.8); ALKALINE PHOSPHATASE 112 U/L (38-126); ALT/SGPT 40 U/L (7-56); AST/SGOT 43 U/L (14-36); BILIRUBIN,TOTAL 0.2 mg/dL (0.2-1.3); BLOOD UREA NITROGEN 11 mg/dL (7-21); CALCIUM 9.3 mg/dL (8.4-10.5); CARBON DIOXIDE 27 mmol/L (21-33); CHLORIDE 103 mmol/L (98-107); GFR AFRICAN-AMERICAN > 60; GLUCOSE,RANDOM 113 mg/dL (70-110); POTASSIUM 4.3 mmol/L (3.6-5.0); SODIUM 141 mmol/L (132-148); TOTAL PROTEIN 8.2 g/dL (5.8-8.3)
[2017-06-27 20:33] LABS: THYROID STIMULATING HORMONE 1.45 mIU/mL (0.46-4.68)
[2017-06-27 20:46] LABS: TROPONIN I < 0.01 ng/mL
--- NOTE | 2017-06-27 21:35 | CT ---
EXAM: CT Head Without Intravenous Contrast CLINICAL HISTORY: 41 years old, female; Pain; Headache; Headache not specified TECHNIQUE: Axial computed tomography images of the head/brain without intravenous contrast. All CT scans at this facility use one or more dose reduction techniques, viz.: automated exposure control; ma/kV adjustment per patient size (including targeted exams where dose is matched to indication; i.e. head); or iterative reconstruction technique. COMPARISON: CT - HEAD W/O CONTRAST 04/27/2017 6:06:29 AM FINDINGS: Brain: No hemorrhage. No significant white matter disease. No edema. Ventricles: No hydrocephalus. Bones: Skull is intact. Sinuses: No acute sinusitis. Mastoid air cells: No mastoid effusion. IMPRESSION: No CT evidence of acute intracranial abnormality.
[2017-06-27] MEDS ORDERED: Morphine 2 mg/ml ISec IVP STA (22:38)
[2017-06-28 03:20] VITALS: BMI 38.8
--- NOTE | 2017-06-28 07:44 | RAD ---
HISTORY: pain COMPARISON: 04/27/2017 FINDINGS: LUNGS: No active pulmonary disease. PLEURA: No significant pleural effusion identified, no pneumothorax apparent. CARDIOVASCULAR: Normal. OSSEOUS STRUCTURES: No significant abnormalities. VISUALIZED UPPER ABDOMEN: Normal. OTHER FINDINGS: None. IMPRESSION: No active disease.
[2017-06-28] MEDS: Emtricitabine-Tenofovir 200 mg-300 mg Tab PO SCH (09:06)
--- NOTE | 2017-06-28 12:10 | CP.PCM.CON ---
Addendum entered and electronically signed by Charles Mckeon DO 06/28/17 12:26: Addendum to plan 6) maintain Blood glucose 140-180 Original Note: <Charles Mckeon - Last Filed: 06/28/17 11:54> History of Present Illness - History of Present Illness History of Present Illness: Neurology consult note for Dr. Chisholm service Consulted for: Headaches HPI: This is a 41 yo AA F with PMH of HIV, HTN, essential thrombocytosis, prediabetes (A1c 6.6), and prior TIA who presented to [facility] for complaint of chest pressure radiating to her neck and jaw x1 day with concurrent headache, dizziness, and shortness of breath. Patient reports the headaches have actually been going on for a longer period of time, occur daily, and present as initially bilateral occipital pressure extending around to temporal region, with occasional popping sensation in her ears. Dizziness is not directly associated with the headaches; patient reports increasing anxiety due to her hx of prior CVA, and begins to get anxious, have palpitations, and then get dizzy when she gets the headaches. Denies sensation of room spinning, nausea/emesis, with headache, auras, or worse with bright lights/loud noises. Currently, denies chest pressure, headache, dizziness, shortness of breath, nausea/emesis, cough, abd pain, diarrhea/constipation, focal paresthesias/weakness, or fever/ chills. All other ROS in 12 point system review negative. 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 Nicole Review of Systems - Review of Systems All systems: reviewed and no additional remarkable complaints except (as per HPI ) Past Patient History - Infectious Disease Hx of Infectious Diseases: None - Tetanus Immunizations Tetanus Immunization: Unknown - Past Social History Smoking Status: Never Smoked - CARDIAC Hx Hypertension: Yes - PULMONARY Hx Respiratory Disorders: No - NEUROLOGICAL Hx Transient Ischemic Attacks (TIA): Yes (December 2016) - HEENT Hx HEENT Problems: No - RENAL Hx Chronic Kidney Disease: No - ENDOCRINE/METABOLIC Hx Diabetes Mellitus Type 2: Yes (Pre diabetic) - HEMATOLOGICAL/ONCOLOGICAL Hx Blood Disorders: Yes Other/Comment: "High blood platelets - Essential Blood Thrombocytosis" - INTEGUMENTARY Hx Dermatological Problems: No - MUSCULOSKELETAL/RHEUMATOLOGICAL Hx Musculoskeletal Disorders: No Hx Falls: No - GASTROINTESTINAL Hx Gastrointestinal Disorders: No - GENITOURINARY/GYNECOLOGICAL Hx Genitourinary Disorders: No - PSYCHIATRIC Hx Psychophysiologic Disorder: No - SURGICAL HISTORY Hx Section: Yes Hx Dilation and Curettage: Yes - ANESTHESIA Hx Anesthesia: Yes Hx Anesthesia Reactions: No Hx Malignant Hyperthermia: No Meds Allergies/Adverse Reactions: Allergies Allergy/AdvReac Type Severity Reaction Status Date / Time No Known Allergies Allergy Verified 06/27/17 18:58 - Medications Medications: Current Medications Aspirin (Ecotrin) 81 mg PO DAILY [facility] Last Admin: 06/28/17 09:08 Dose: 81 mg Emtricitabine/Tenofovir (Truvada 200 Mg-300 Mg) 1 tab PO DAILY [facility] Last Admin: 06/28/17 09:06 Dose: 1 tab Home Med (Home Med) 1 unit PO BID [facility] Losartan Potassium (Cozaar) 100 mg PO DAILY [facility] Last Admin: 06/28/17 09:07 Dose: 100 mg Physical Exam - Constitutional Appears: Well, Non-toxic, No Acute Distress - Head Exam Head Exam: ATRAUMATIC, NORMAL INSPECTION, NORMOCEPHALIC Additional comments: Occipital tenderness extending into posterior temporal regions bilaterally, increased muscle tone in these regions without overt spasm No tenderness at ears or pinna, no tenderness anterior to ears, no TMJ tenderness - Eye Exam Eye Exam: EOMI, Normal appearance, PERRL. absent: Conjunctival injection, Scleral icterus Pupil Exam: NORMAL ACCOMODATION, PERRL. absent: Fixed, Irregular, Unequal - ENT Exam ENT Exam: Mucous Membranes Moist. absent: Mucous Membranes Dry - Neck Exam Neck exam: Positive for: Full Rom, Normal Inspection. Negative for: Tenderness - Respiratory Exam Respiratory Exam: Clear to Auscultation Bilateral, NORMAL BREATHING PATTERN. absent: Accessory Muscle Use, Chest Wall Tenderness, Decreased Breath Sounds, Prolonged Expiratory Phase, Rales, Rhonchi, Wheezes, Respiratory Distress - Cardiovascular Exam Cardiovascular Exam: REGULAR RHYTHM, RRR, +S1, +S2. absent: Bradycardia, Tachycardia, Clicks, Irregular Rhythm, +S4 - GI/Abdominal Exam GI & Abdominal Exam: Normal Bowel Sounds, Soft. absent: Diminished Bowel Sounds , Distended, Firm, Hyperactive Bowel Sounds, Hypoactive Bowel Sounds, Rigid, Tenderness - Extremities Exam Extremities exam: Positive for: pedal pulses present. Negative for: calf tenderness, joint swelling, tenderness - Back Exam Back exam: NORMAL INSPECTION. 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 Sensation grossly intact and equal bilaterally - Psychiatric Exam Psychiatric exam: Normal Affect, Normal Mood - Skin Skin Exam: Dry, Intact, Normal Color, Warm Results - Vital Signs Recent Vital Signs: Last Vital Signs Temp 98.5 F 06/28/17 06:00 Pulse 84 06/28/17 09: Resp 17 06/28/17 09:05 BP 127/78 06/28/17 09:05 Pulse Ox 100 06/28/17 06:00 - Labs Result Diagrams: 06/27/17 19:30 06/27/17 19:30 Assessment & Plan - Assessment and Plan (Free Text) Assessment: This is a 41 yo AA F with PMH of HIV, HTN, essential thrombocytosis, prediabetes (A1c 6.6), and prior TIA who presented to [facility] for complaint of chest pressure radiating to her neck and jaw x1 day with concurrent headache, dizziness, and shortness of breath. Her headaches are non-neurological in origin, likely tension headaches. Her dizziness may have a vasovagal component given her anxiety, as well as an orthostatic component given multiple SBP readings < 100. Her MRI in January 2017 was normal, and her head CT on admission was negative of acute issue. Plan: 1) Maintain SBP >= 110 2) Gabapentin 300mg PO HS for NAVARRO 3) Fioricet q4 PRN for acute headache 4) Cervical muscle stretching rehab as outpt 5) ASA 81mg PO daily given stroke hx Patient reviewed and discussed with attending, Dr. Chisholm. <Ryan Chisholm - Last Filed: 06/28/17 13:54> Meds - Medications Medications: Current Medications Aspirin (Ecotrin) 81 mg PO DAILY [facility] Last Admin: 06/28/17 09:08 Dose: 81 mg Emtricitabine/Tenofovir (Truvada 200 Mg-300 Mg) 1 tab PO DAILY [facility] Last Admin: 06/28/17 09:06 Dose: 1 tab Home Med (Home Med) 1 unit PO BID [facility] Losartan Potassium (Cozaar) 100 mg PO DAILY [facility] Last Admin: 06/28/17 09:07 Dose: 100 mg Pantoprazole Sodium (Protonix Inj) 40 mg IVP Q12 [facility] Results - Vital Signs Recent Vital Signs: Last Vital Signs Temp 98.5 F 06/28/17 06:00 Pulse 84 06/28/17 09:11 Resp 17 06/28/17 09:05 BP 127/78 06/28/17 09:05 Pulse Ox 100 06/28/17 06:00 - Labs Result Diagrams: 06/27/17 19:30 06/27/17 19:30 Attending/Attestation - Attestation I have personally seen and examined this patient.: Yes I have fully participated in the care of the patient.: Yes I have reviewed all pertinent clinical information: Yes
--- NOTE | 2017-06-28 13:48 | HP ---
LOCATION: Room 262, bed 1. HISTORY OF PRESENT ILLNESS: The patient was admitted last night via the emergency room. The patient is a 41-year-old female, she presented with chest discomfort involving the lower part of the neck. The patient also has pressure in the posterior aspect of the head that she says it makes her very uncomfortable and frightened. The patient has no shortness of breath. She was complaining of this pain in the emergency room she need a relief. PAST MEDICAL HISTORY: Significant that she weighs 317 pounds, she has height of 6 feet 4 inches. She is overweight for her height in spite of the appearance. The patient has past history of TIA. The patient has been evaluated for that. The patient has had past history of chest pain, evaluation with echocardiogram, [facility] [place]. The patient had been getting treatment for HIV. She is on 2 medications at this time. The patient has also some symptoms of head evaluation. The patient has had an MRI in the past for the TIA symptoms. The patient has had MRA to evaluate the secretion, they are negative. PHYSICAL EXAMINATION GENERAL: Currently the patient is lying in bed. She answers all questions. She is very pleasant. VITAL SIGNS: Her pulse is 75, blood pressure is 117/66, respirations of 20, O2 saturations 100% on room air. HEENT: The patient's head is normocephalic. She has no injury to the head. NECK: The patient's thyroid is not clinically enlarged. HEART: Normal sinus rhythm. S1 and S2 present. No murmurs. (The patient was told that she might have floppy valve according to the echocardiogram report). LUNGS: Trachea is central. Breath sounds are vesicular. No adventitious sounds heard. ABDOMEN: Soft. Liver and spleen are not palpable. No ascites. No masses felt. CENTRAL NERVOUS SYSTEM: The patient is conscious, rational, and oriented. Cranial nerves are intact. EXTREMITIES: present and since admission seems to be okay. The patient is able to get up or out of bed and sit in the chair and walk. Ambulation capellan she is functional. MEDICATIONS: She takes medications for blood pressure which is an ARB. The list of medication consist of valsartan 160 mg daily, aspirin 81 mg daily. The patient is on Truvada its a combination medicine for HIV. The patient is also on diet 2 g sodium and 2000 calories. LABORATORY DATA: The patient's chest x-ray is clear. EKG shows normal sinus rhythm. The patient's lab work; the hemoglobin is 10.4. The patient's platelet count is elevated 912,000. The patient's chemistries the sugar is 113. She had borderline diabetes. The patient's creatine kinase is 428 which is slightly elevated. The patient's thyroid function, the TSH is within normal limits. IMPRESSION AND PLAN: So, the patient's current symptoms are led to cardiac manifestation and cerebral manifestation. She will have neurological evaluation, cardiac evaluation, hematological evaluation for thrombocytosis and follow up with the medication that she is on at this time. Her condition is clinically stable at this time. She has symptoms that has been resolved. Vivi Wiley MD
--- NOTE | 2017-06-28 17:19 | CARD ---
APPROVED REPORT EKG Measurement Heart [id number] <Conclusion> Sinus tachycardia Cannot rule out Anterior infarct, age undetermined Abnormal ECG
[2017-06-28] MEDS: JAKAFI 15 MG PO SCH (17:28)
[2017-06-28] MEDS ORDERED: Apap-Butalbital-Caffeine 325-50-40mg Tab PO PRN (20:12)
--- NOTE | 2017-06-28 21:13 | CON ---
CARDIOLOGY CONSULTATION DATE: 06/28/2017 HISTORY OF PRESENT ILLNESS: The patient still complains of atypical chest and headache symptoms. PAST MEDICAL HISTORY: The patient's past medical history is notable for hypertension, LVH noted on previous echocardiogram, as well as a borderline diabetes mellitus. She also suffers from chronic thrombocytosis. SOCIAL HISTORY: She does not smoke. REVIEW OF SYSTEMS: A 14-point review of systems was reviewed in detail. No additional symptoms are noted. PHYSICAL EXAMINATION: VITAL SIGNS: Blood pressure is 127/78, heart rate is in the 80s. NECK: Negative JVD. LUNGS: Without rales. HEART: Reveals S1, S2. EXTREMITIES: Without edema. DIAGNOSTIC DATA: EKG shows normal sinus rhythm with nonspecific ST-T changes. LABORATORY DATA: Reveals troponins is negative. BUN and creatinine are unremarkable. The glucose is 113. A hemoglobin is 10.4 with a platelet count of 912. ASSESSMENT: 1. Atypical chest pain. 2. No evidence for acute coronary syndrome. 3. Thrombocytosis. 4. Anemia. 5. Hypertension. 6. Diabetes mellitus. PLAN: Given these findings, we will discuss with Dr. Haley with Dr. Ellison covering about the patient may need a hematology consult. Although the patient had an unremarkable stress test reported at [place] 6 months ago, we will arrange to have a repeat stress Cardiolite at the end of the week, which can be done as an outpatient. Noah Rodriguez MD
[2017-06-29 08:52] LABS: BASO # 0.03 K/mm3 (0.0-2.0); BASO % 0.4 % (0.0-3.0); EOS # 0.1 (0.0-0.7); EOS % 0.7 % (1.5-5.0); GRAN # 4.11 (1.4-6.5); GRAN % 57.8 % (50.0-68.0); HEMATOCRIT 32.1 % (36.0-48.0); LYMPH # 2.6 (1.2-3.4); MEAN CELL VOLUME 84.7 fl (80.0-105.0); MEAN CORPUSCULAR HEMOGLOBIN 27.4 pg (25.0-35.0); MEAN CORPUSCULAR HGB CONC 32.4 g/dl (31.0-37.0); MEAN PLATELET VOLUME 8.2 fl (7.0-11.0); MONO # 0.4 (0.1-0.6); MONO % 5.1 % (1.0-6.0); RED CELL DISTRIBUTION WIDTH 17.8 % (11.5-14.5); WHITE BLOOD COUNT 7.1 10^3/ul (4.5-11.0)
[2017-06-29 09:02] LABS: ALB/GLOB RATIO 1.2 (1.1-1.8); ALKALINE PHOSPHATASE 111 U/L (38-126); ALT/SGPT 36 U/L (7-56); AST/SGOT 53 U/L (14-36); BILIRUBIN,TOTAL 0.3 mg/dL (0.2-1.3); BLOOD UREA NITROGEN 8 mg/dL (7-21); CARBON DIOXIDE 28 mmol/L (21-33); CHLORIDE 106 mmol/L (98-107); GFR AFRICAN-AMERICAN > 60; GLUCOSE,RANDOM 154 mg/dL (70-110); POTASSIUM 4.1 mmol/L (3.6-5.0); SODIUM 142 mmol/L (132-148); TOTAL PROTEIN 7.6 g/dL (5.8-8.3)
[2017-06-29] MEDS: JAKAFI 15 MG PO SCH (09:38)
[2017-06-29] MEDS: Emtricitabine-Tenofovir 200 mg-300 mg Tab PO SCH (09:38)
[2017-06-29] MEDS ORDERED: Home Med 1 UNIT PO SCH (10:00)
[2017-06-29 11:02] LABS: RETIC% 1.32 % (0.5-1.5)
[2017-06-29 11:07] LABS: IRON 72 ug/dL (45-180)
--- NOTE | 2017-06-29 13:21 | CP.PCM.DIS ---
Provider - Provider Date of Admission: 06/27/17 23:21 Attending physician: Geronimo Haley MD Primary care physician: Geronimo Haley MD Consults: Cardiology: Dr. Rodriguez Neurology: Dr. Chisholm Hematology: Dr. Rendon Time Spent in preparation of Discharge (in minutes): 45 Hospital Course - Lab Results Lab Results: Most Recent Lab Values WBC 7.1 10^3/ul (4.5-11.0) D 06/29/17 08:30 RBC 3.79 10^6/uL (3.5-6.1) 06/29/17 08:30 Hgb 10.4 g/dL (12.0-16.0) L 06/29/17 08:30 Hct 32.1 % (36.0-48.0) L 06/29/17 08:30 MCV 84.7 fl (80.0-105.0) 06/29/17 08:30 MCH 27.4 pg (25.0-35.0) 06/29/17 08:30 MCHC 32.4 g/dl (31.0-37.0) 06/29/17 08:30 RDW 17.8 % (11.5-14.5) H 06/29/17 08:30 Plt Count 766 10^3/uL (120.0-450.0) H* 06/29/17 08:30 MPV 8.2 fl (7.0-11.0) 06/29/17 08:30 Gran % 57.8 % (50.0-68.0) 06/29/17 08:30 Lymph % (Auto) 36.0 % (22.0-35.0) H 06/29/17 08:30 Faulkner % (Auto) 5.1 % (1.0-6.0) 06/29/17 08:30 Eos % (Auto) 0.7 % (1.5-5.0) L 06/29/17 08:30 Baso % (Auto) 0.4 % (0.0-3.0) 06/29/17 08:30 Gran # 4.11 (1.4-6.5) 06/29/17 08:30 Lymph # 2.6 (1.2-3.4) 06/29/17 08:30 Faulkner # 0.4 (0.1-0.6) 06/29/17 08:30 Eos # 0.1 (0.0-0.7) 06/29/17 08:30 Baso # 0.03 K/mm3 (0.0-2.0) 06/29/17 08:30 Retic Count 1.32 % (0.5-1.5) 06/29/17 09:59 PT 10.7 Seconds (9.9-11.8) 06/27/17 19:30 INR 0.99 (0.93-1.08) 06/27/17 19:30 APTT 27.5 Seconds (23.7-30.8) 06/27/17 19:30 D-Dimer, Quantitative 0.46 mg/L FEU (0-0.50) 06/27/17 19:30 Sodium 142 mmol/L (132-148) 06/29/17 08:30 Potassium 4.1 mmol/L (3.6-5.0) 06/29/17 08:30 Chloride 106 mmol/L (98-107) 06/29/17 08:30 Carbon Dioxide 28 mmol/L (21-33) 06/29/17 08:30 Anion Gap 12 (10-20) 06/29/17 08:30 BUN 8 mg/dL (7-21) 06/29/17 08:30 Creatinine 0.9 mg/dL (0.5-1.4) 06/29/17 08:30 Est GFR ( Amer) > 60 06/29/17 08:30 Est GFR (Non-Af Amer) > 60 06/29/17 08:30 Random Glucose 154 mg/dL (70-110) H 06/29/17 08:30 Calcium 9.0 mg/dL (8.4-10.5) 06/29/17 08:30 Iron 72 ug/dL (45-180) 06/29/17 09:59 TIBC 398 ug/dL (265-497) 06/29/17 09:59 % Saturation 18 % (20-55) L 06/29/17 09:59 Total Bilirubin 0.3 mg/dL (0.2-1.3) 06/29/17 08:30 AST 53 U/L (14-36) H D 06/29/17 08:30 ALT 36 U/L (7-56) 06/29/17 08:30 Alkaline Phosphatase 111 U/L (38-126) 06/29/17 08:30 Lactate Dehydrogenase 505 U/L (333-699) 06/27/17 19:30 Total Creatine Kinase 428 U/L (35-230) H 06/27/17 19:30 CK-MB (CK-2) 1.5 ng/mL (0.0-3.6) 06/27/17 19:30 CK-MB (CK-2) % Cancelled 06/27/17 19:30 Troponin I < 0.01 ng/mL 06/27/17 19:30 NT-Pro-B Natriuret Pep 21.3 pg/mL (0-450) 06/27/17 19:30 Total Protein 7.6 g/dL (5.8-8.3) 06/29/17 08:30 Albumin 4.1 g/dL (3.0-4.8) 06/29/17 08:30 Globulin 3.5 gm/dL 06/29/17 08:30 Albumin/Globulin Ratio 1.2 (1.1-1.8) 06/29/17 08:30 Free T4 0.84 ng/dL (0.78-2.19) 06/27/17 19:30 TSH 3rd Generation 1.45 mIU/mL (0.46-4.68) 06/27/17 19:30 - Hospital Course Hospital Course: 41yo F with PMHx of previous TIA and HIV here for evaluation of atypical chest pain. ACS was ruled out. EKG with no acute changes. Cardiology consult was obtained, who noted recent negative stress test. Repeat out-patient stress test was recommended at the end of the week. Neurology consult was obtained due to recurrent headaches. CT head was negative. Patient was recommended Gabapentin and Fioricet. Patient was noted to have thrombocytosis on labs and was recommended a Hematology consul. She states that she has a private Supply Chain Procurement Manager and will like to follow up with them. She was cleared for discharge. Discussed plan with patient thoroughly who expressed understanding. All questions and concerns addressed. Upon Discharge: Patient is cleared for discharge as per Dr. Wiley (Covering for Dr. Haley) 1. Follow up with your Primary care physician within one week. 2. Follow up with your private bale tie machine operator within one week 3. Recommend out-patient stress test at the end of this week as scheduled by Dr. Rodriguez, Cardiology 4. Resume home meds 5. New prescriptions as ordered. (Prescription on chart) 6. Return to the ER with any concerning symptoms New Prescriptions: 1. Fioricet 1 tab PO QID prn #50/0 2. Neurontin 100mg PO TID #60/0 Discharge Exam - Head Exam Head Exam: ATRAUMATIC, NORMAL INSPECTION, NORMOCEPHALIC - Eye Exam Eye Exam: EOMI, Normal appearance - ENT Exam ENT Exam: Mucous Membranes Moist - Neck Exam Neck exam: Full Rom - Respiratory Exam Respiratory Exam: Clear to PA & Lateral, NORMAL BREATHING PATTERN. absent: Accessory Muscle Use - Cardiovascular Exam Cardiovascular Exam: RRR. absent: JVD - GI/Abdominal Exam GI & Abdominal Exam: absent: Distended, Firm, Guarding, Soft - Extremities Exam Extremities exam: full ROM, normal inspection - Neurological Exam Neurological exam: Alert, Oriented x3 - Psychiatric Exam Psychiatric exam: Normal Affect, Normal Mood - Skin Skin Exam: Dry, Intact, Normal Color, Warm Discharge Plan - Discharge Medications Prescriptions: Acetaminophen/Butalbital/Caf [Fioricet] 1 tab PO Q4H PRN #50 tab PRN Reason: Headache Gabapentin [Neurontin] 100 mg PO TID #60 cap - Follow Up Plan Condition: STABLE Disposition: HOME/ ROUTINE Additional Instructions: Patient is cleared for discharge as per Dr. Wiley (Covering for Dr. Haley) 1. Follow up with your Primary care physician within one week. 2. Follow up with your private bale tie machine operator within one week 3. Recommend out-patient Stress test at the end of this week as scheduled by Dr. Rodriguez, Cardiology 4. Resume home meds 5. New prescriptions as ordered. (Prescription on chart) 6. Return to the ER with any concerning symptoms New Prescriptions: 1. Fioricet 1 tab PO QID prn #50/0 2. Neurontin 100mg PO TID #60/0 Referrals: Geronimo Haley MD [Primary Care Provider] -
--- NOTE | 2017-06-29 13:27 | PN ---
SUBJECTIVE: The patient is seen in the [facility], admitted with chest discomfort and headache. The patient has past history of HIV. The patient has history of hypertension and prediabetic state. She was seen this morning. She still complains of some discomfort in her chest. PHYSICAL EXAMINATION: VITAL SIGNS: The pulse is 78, blood pressure 105/48, respirations are 19, O2 saturation 100%. HEART: The patient's head is normocephalic. NECK: Thyroid is not enlarged. The carotid pulses are present. HEART: Normal sinus rhythm. S1 and S2 present. There is no chest wall tenderness noted. LUNGS: Trachea is central. Breath sounds are vesicular. No adventitious sounds are heard. ABDOMEN: Soft. Liver and spleen not palpable. No ascites. No masses. CENTRAL NERVOUS SYSTEM: The patient is conscious, rational, and oriented. She is pleasant. She understands. LABORATORY DATA: The patient's labs are read by the brain picker that the cardiac enzyme studies and acute ischemic studies were negative. The patient has had earlier stress test done, not too long ago, at the [facility]. The patient's outpatient management will be the idea for her and he will follow up as an outpatient and recommends stress test intensively. However, the patient will be reevaluated today by Dr. Rodriguez and if he feels comfortable, the patient can go home and the patient will be given Neurontin 100 mg 3 times a day and Fioricet 1 tablet q.i.d. for headache and head discomfort. MEDICATIONS: The patient's list of medications consists of aspirin. The patient is on losartan. She is on pantoprazole 40 mg q. 12 hours. Ancillary study so far has not revealed any new diagnosis. The patient's existing diagnoses consist of hypertension, human immunodeficiency virus infection, prediabetic state, possible gastritis. Overall prognosis is guarded in spite of the fact that the patient is stable clinically. The patient might be discharged home from [facility] after Dr. Rodriguez evaluates the patient. Vivi Wiley MD
--- NOTE | 2017-06-29 15:15 | PN ---
DATE: 06/29/2017 SUBJECTIVE: The patient is chest pain free. PHYSICAL EXAMINATION: VITAL SIGNS: Stable. NECK: Negative JVD. LUNGS: Without rales. HEART: S1, S2. EXTREMITIES: Without edema. LABORATORY DATA: Unremarkable. IMPRESSION: 1. Recurrent atypical chest pain. 2. Obesity. 3. Diabetes mellitus. 4. Thrombocytosis. 5. Anemia. PLAN: Given these findings, there is no evidence for acute coronary syndrome. I have discussed with the patient about the need for either a nuclear stress test versus a cardiac catheterization. The patient is agreeable for nuclear stress test. She would like to have it done in [facility] in which she will make arrangements to have it performed. Noah Rodriguez MD
--- NOTE | 2017-06-29 16:33 | CON ---
DATE: 06/29/2017 REQUESTING PHYSICIAN: Geronimo Haley MD REASON FOR CONSULTATION: Thrombocytosis. HISTORY OF PRESENT ILLNESS: The patient is a 41-year-old female with past medical history significant for known erythrocytosis likely related to myeloproliferative disorder. The patient has been on Hydrea in the past, recently switched to Jakafi, has been followed by my partner Dr. Jayme Varghese in the office. She was now admitted with complaints of chest pressure and shortness of breath. She has a history of TIA in the past and she is currently now being evaluated for cardiac issues. She has had an MRA in the past and she has also had extensive cardiac workup in the past, which did not reveal any pathology. She is morbidly obese as well. MEDICATIONS: Her medications at home include ARB for blood pressure, valsartan, she is also on Truvada for HIV and she is taking Jakafi. ALLERGIES: NO KNOWN DRUG ALLERGIES. SOCIAL HISTORY: Noncontributory. She is not a smoker. No alcohol use. No drug use. FAMILY HISTORY: Noncontributory. REVIEW OF SYSTEMS: As per the HPI. PHYSICAL EXAMINATION: GENERAL: The patient is a middle-aged morbidly obese female lying in bed in no acute distress. VITAL SIGNS: Revealed a temperature 98.0, pulse of 78, respiratory rate 20, and blood pressure 105/48. HEENT: Head is normocephalic, atraumatic. Eyes, pupils are equal, round, and reactive to light and accommodation. Extraocular muscles intact. There is no pallor. No icterus noted. NECK: Supple with no adenopathy. No JVD. No thyromegaly. LUNGS: Clear to auscultation bilaterally with no rales or rhonchi. CARDIOVASCULAR: S1 and S2 is heard. ABDOMEN: Positive bowel sounds, soft, nontender, and nondistended. No organomegaly is palpated. EXTREMITIES: There is no edema, clubbing, or cyanosis. LABORATORY DATA: Revealed a white count of 7.1, hemoglobin 10.4, hematocrit 32.1, MCV of 84.7, and platelet count of 766. Platelet count was elevated at 912 on admission. Coags are within normal limits. Chemistries are within normal limits. Random glucose is elevated. LFTs also reveal an AST of 53. ASSESSMENT AND PLAN: Middle-aged female with known myeloproliferative disorder, essentially thrombocytosis, has been taking Jakafi as an outpatient. Counts have improved, as her platelet count used to be over a million and has been declining. She will need followup as an outpatient with Dr. Varghese to continue Jakafi, may need an increase in her dose as well. Continue current management for her possible signs of transient ischemic attacks. Consider aspirin. The patient is already on aspirin, continue aspirin. Thank you for the consult. We will follow. Ne Rendon MD
[2017-06-29 17:56] LABS: FOLATE > 20.0 ng/mL
[2017-06-29 18:04] VITALS: BP 116/69; PULSE 70; RESP 18; TEMP 98.7
== END 2017-06-29 18:29 | disposition home or self-care (01) ==
LOC: ED 18:47 → ERH 23:21 → 2RNO 06-28 00:34
PROVIDERS: ADMIT Internal Medicine; ATTEND Internal Medicine
DX: R07.9 Chest pain, unspecified (principal); R07.89 Other chest pain; D47.3 Essential (hemorrhagic) thrombocythemia; R51 Headache; Z21 Asymptomatic human immunodeficiency virus [HIV] infection status; D64.9 Anemia, unspecified; E11.9 Type 2 diabetes mellitus without complications; D75.89 Other specified diseases of blood and blood-forming organs; F41.9 Anxiety disorder, unspecified; G44.209 Tension-type headache, unspecified, not intractable; E66.01 Morbid (severe) obesity due to excess calories; I10 Essential (primary) hypertension; Z79.82 Long term (current) use of aspirin; Z86.73 Personal history of transient ischemic attack (TIA), and cerebral infarction without residual deficits
CPT/HCPCS: 36415; 70450; 71010; 80053; 81270; 82550; 82553; 82607; 82728; 82746; 83540; 83550; 83615; 83880; 84439; 84443; 84484; 85025; 85027; 85044; 85378; 85610; 85730; 93005; 99285; C9113; G0378